=== PATIENT | female | born 1965 | race African-American/Black ===

== ENCOUNTER 2016-06-09 22:13 | Emergency (ER) | payer SELFPAY ==
[2016-06-10] MEDS ORDERED: TETRACAINE HCL 0.5% OPH SOLN 2 ML OS ONE (02:18)
--- NOTE | 2016-06-10 02:20 | ER Document Report ---
ED General - General Chief Complaint: L side facial swelling Stated Complaint: LEFT SIDE FACE PAIN/SWELLING Time seen by provider: 02:10 Notes: Patient is a 51-year-old female that comes emergency department for chief complaint of pain in the left religion area with radiations to her jaw, she also complains of eye pain and light sensitivity to the left eye. She states that she started feeling like her face was swollen. She denies numbness, weakness, visual loss, injury. She denies fever or chills. Headache initially started almost 3 days ago but symptoms have worsened. Past medical history of hypertension and diabetes, currently out of all her medications because she does not have a primary care physician. TRAVEL OUTSIDE OF THE [place] IN LAST 30 DAYS: No - Related Data Allergies/Adverse Reactions: levofloxacin [From Levaquin] Allergy (Verified 01/06/14 21:27) nitrofurantoin [From Macrobid] Allergy (Verified 01/06/14 21:27) Past Medical History - General Information source: Patient - Social History Smoking Status: Never Smoker Frequency of alcohol use: None Drug Abuse: None Lives with: Family Family History: Hypertension Patient has suicidal ideation: No Patient has homicidal ideation: No - Past Medical History Cardiac Medical History: Reports: Hx Hypertension Endocrine Medical History: Reports: Hx Diabetes Mellitus Type 2 Renal/ Medical History: Denies: Hx Peritoneal Dialysis Psychiatric Medical History: Reports: Hx Depression Past Surgical History: Reports: Hx Cholecystectomy, Hx Tubal Ligation - Immunizations Hx Diphtheria, Pertussis, Tetanus Vaccination: No Hx Pneumococcal Vaccination: 05/18/00 Review of Systems - Review of Systems Constitutional: No symptoms reported EENT: See HPI Cardiovascular: No symptoms reported Respiratory: No symptoms reported Gastrointestinal: No symptoms reported Genitourinary: No symptoms reported Female Genitourinary: No symptoms reported Musculoskeletal: No symptoms reported Skin: No symptoms reported Hematologic/Lymphatic: No symptoms reported Neurological/Psychological: See HPI Physical Exam - Vital signs Vitals: Temp Pulse BP Pulse Ox 98.5 F 107 H 199/97 H 98 06/09/16 22:26 06/09/16 22:26 06/09/16 22:26 06/09/16 22:26 Interpretation: Normal - General General appearance: Appears well, Alert In distress: None - HEENT Head: Normocephalic, Atraumatic Eyes: Normal. No: Periorbital ecchymosis, Periorbital edema Conjunctiva: Injected - Erythematous irritated appearing left eye. No: Purulent discharge Cornea: No: Corneal abrasion, Corneal ulcer, Dendrite, Embedded foreign body, Flourescein stain uptake, Opacified, Superficial foreign body Extraocular movements intact: Yes Eyelashes: Normal Pupils: PERRL - Patient with some photophobia of the left eye Corrective lenses worn: Yes - glasses Right intraocular pressure: average of 15 Left intraocular pressure: average of 18 Anterior chamber: Normal Nerve palsy: No Ears: Normal External canal: Normal Tympanic membrane: Normal Sinus: Normal Nasal: Normal Mouth/Lips: Normal Mucous membranes: Normal Pharynx: Normal Neck: Normal - Respiratory Respiratory status: No respiratory distress Chest status: Nontender Breath sounds: Normal Chest palpation: Normal - Cardiovascular Rhythm: Regular Heart sounds: Normal auscultation Murmur: No - Abdominal Inspection: Normal Distension: No distension Bowel sounds: Normal Tenderness: Nontender Organomegaly: No organomegaly - Back Back: Normal, Nontender - Extremities General upper extremity: Normal inspection, Nontender, Normal color, Normal ROM , Normal temperature General lower extremity: Normal inspection, Nontender, Normal color, Normal ROM , Normal temperature, Normal weight bearing. No: Hugh's sign - Neurological Neuro grossly intact: Yes Cognition: Normal Orientation: AAOx4 [place] Coma Scale Eye Opening: Spontaneous [place] Coma Scale Verbal: Oriented [place] Coma Scale Motor: Obeys Commands [place] Coma Scale Total: 15 Speech: Normal Motor strength normal: LUE, RUE, LLE, RLE Sensory: Normal - Psychological Associated symptoms: Normal affect, Normal mood - Skin Skin Temperature: Warm Skin Moisture: Dry Skin Color: Normal Course - Re-evaluation Re-evalutation: Fluoresceined eye examination with the Hunter lamp and slit-lamp is unremarkable with no dendrites or other abnormalities noted. Patient denies very injected, initially with photophobia and location was given tetracaine. Patient does have tenderness noted over the left side of the face in the temporal area, however ESR is unremarkable. Patient with no facial drooping or neurological deficits on examination, no visual changes reported, only symptoms of pain and evidence of irritation. Concern for possible early shingles, intraocular pressure is unremarkable, no injuries reported. Patient with hypoglycemia, patient states that she has done best with the 1 mg so far area in addition to 1000 g metformin twice a day, also needs to be restarted on her blood pressure medication. Patient was given these, referred to local primary care, she states that she will follow with both this and with ophthalmology in the morning. Starting on Valtrex, discussed return precautions. Patient was evaluated at bedside by Dr. Pedroza. Patient states understanding and agreement. - Vital Signs Vital signs: Temp Pulse Resp BP Pulse Ox 98.2 F 88 16 189/89 H 99 06/10/16 04:56 06/10/16 04:56 06/10/16 04:56 06/10/16 04:56 06/10/16 04:56 - Laboratory Result Diagrams: 06/10/16 03:02 Laboratory results interpreted by me: 06/10/16 06/10/16 03:02 03:02 ESR 32 H Glucose 320 H Discharge - Discharge Clinical Impression: Left eye pain Condition: Stable Disposition: HOME, SELF-CARE Additional Instructions: Your laboratory workup and pressures do not show an acute abnormalities. We are covering you with an antiviral for potential shingles, please take the Valtrex as directed, take Percocet if needed for pain, please call ophthalmology referral placed today for a close follow-up. Follow-up with primary care for additional management of your diabetes and blood pressure, see referral. Please return to the emergency department for any concerning or worsening symptoms including loss of vision, swelling of the eye, severe headache, etc. Prescriptions: Glimepiride [Amaryl 1 mg Tablet] 1 mg PO QAM #30 tablet Lisinopril 10 mg PO DAILY #60 tablet Metformin HCl [Glucophage] 1,000 mg PO BID #60 tablet Oxycodone HCl/Acetaminophen [Percocet 5-325 mg Tablet] 1 - 2 tab PO Q4H PRN #15 tablet PRN Reason: Valacyclovir HCl [Valtrex 500 Mg Tablet] 1,000 mg PO TID #21 tablet Referrals: DIGNA CARMONA MD [ACTIVE STAFF] - 06/10/16 [facility] [Provider Group] - Follow up in 1 week
[2016-06-10 03:34] LABS: ANION GAP 8 (5-19); BLOOD UREA NITROGEN 15 mg/dL (7-20); CALCIUM 9.8 mg/dL (8.4-10.2); CARBON DIOXIDE 28 mmol/L (22-30); CHLORIDE 104 mmol/L (98-107); CREATININE RESULT 0.63 mg/dL (0.52-1.25); GLUCOSE 320 mg/dL (75-110); POTASSIUM 4.4 mmol/L (3.6-5.0); SODIUM 140.2 mmol/L (137-145)
[2016-06-10] MEDS ORDERED: OXYCODONE-ACETAMINOPHEN 5-325 MG TABLET PO ONE (03:55)
[2016-06-10] MEDS ORDERED: ONDANSETRON 4 MG TAB.RAPDIS PO ONE (03:55)
[2016-06-10] MEDS ORDERED: VALACYCLOVIR HCL 500 MG TABLET PO ONE (04:38)
[2016-06-10 05:01] VITALS: BP 189/89
== END 2016-06-10 05:01 | disposition home or self-care (01) ==
LOC: ER 22:13
DX: H57.12 Ocular pain, left eye (principal); H53.149 Visual discomfort, unspecified; I10 Essential (primary) hypertension; E11.9 Type 2 diabetes mellitus without complications; Z90.49 Acquired absence of other specified parts of digestive tract; Z98.51 Tubal ligation status
CPT/HCPCS: 99283; 36415; 85652; 80048; S0119

== ENCOUNTER 2016-12-18 02:02 | Observation (INO) | payer SELFPAY ==
--- NOTE | 2016-12-18 02:13 | ER Document Report ---
ED General - General Chief Complaint: Chest Pain Stated Complaint: CHEST PAIN Time Seen by Provider: 12/18/16 02:08 Notes: 31-year-old female with hypertension hypercholesterolemia and diabetes untreated for 5 months secondary to financial issues presents with sudden onset central chest pain radiating to the left shoulder blade down the left arm associated with sweating nausea and shortness of breath. This started about an hour ago. She has no numbness or tingling the pain is not described as ripping or tearing rather pressure-like. She was given aspirin nitroglycerin by ambulance, the nitroglycerin brought her pain from an 12/17/2000. Not exertional non-positional. No history of same. After the symptoms she had one episode of diarrhea. She currently does not have chest pain. TRAVEL OUTSIDE OF THE [place] IN LAST 30 DAYS: No - Related Data Allergies/Adverse Reactions: levofloxacin [From Levaquin] Allergy (Verified 01/06/14 21:27) nitrofurantoin [From Macrobid] Allergy (Verified 01/06/14 21:27) Past Medical History - General Information source: Patient - Social History Smoking Status: Current Every Day Smoker Cigarette use (# per day): Yes - "Black and mild" Smoking Education Provided: Yes - The patient ED visit today was directly related to their abuse of tobacco. Family History: Hypertension - Past Medical History Cardiac Medical History: Reports: Hx Hypertension Endocrine Medical History: Reports: Hx Diabetes Mellitus Type 2 Renal/ Medical History: Denies: Hx Peritoneal Dialysis Psychiatric Medical History: Reports: Hx Depression Past Surgical History: Reports: Hx Cholecystectomy, Hx Tubal Ligation - Immunizations Hx Diphtheria, Pertussis, Tetanus Vaccination: No Hx Pneumococcal Vaccination: 05/18/00 Review of Systems - Review of Systems Notes: REVIEW OF SYSTEMS GEN: Denies fever, chills, weight loss pheresis ENT: Denies sore throat, nasal discharge, ear pain EYES: Denies blurry vision, eye pain, discharge CV: D chest pain and radiation RESP: Denies cough, shortness of breath, wheezing GI: She had diarrhea MSK: Denies joint pain/swelling, edema, SKIN: Denies rash, skin lesions LYMPH: Denies swollen glands/lymph nodes NEURO: Denies headache, focal weakness or numbness, dizziness PSYCH: Denies depression, suicidal or homicidal ideation PHYSICAL EXAMINATION General: No acute distress, well-nourished Head: Atraumatic, normocephalic ENT: Mouth normal, oropharynx moist, no exudates or tonsillar enlargement Eyes: Conjunctiva normal, pupils equal, lids normal Neck: No JVD, supple, no guarding CVS: Normal rate, regular rhythm, no murmurs Resp: No resp distress, equal and normal breath sounds bilaterally GI: Nondistended, soft, no tenderness to palpation, no rebound or guarding Ext: No deformities, no edema, normal range of motion in upper and lower ext Back: No CVA or midline TTP Skin: No rash, warm Lymphatic: No lymphadeopathy noted Neuro: Awake, alert. Face symmetric. GCS 15. Physical Exam - Vital signs Vitals: Temp Pulse Resp BP Pulse Ox 98 F 104 H 18 108/76 98 12/18/16 02:18 12/18/16 02:18 12/18/16 02:18 12/18/16 02:18 12/18/16 02:18 Course - Re-evaluation Re-evalutation: 12/18/16 02:12 51-year-old lady with untreated hypertension presents with acute hypertension and chest pain radiating to the back and left arm. Differential concerns include aortic dissection unstable angina versus other myocardial infarction. STEMI was ruled out by paramedics and is ruled out based on her initial EKG which is unchanged from prior and shows only L the age. I will aggressively treat her pain hypertension with nitroglycerin, withhold further anticoagulation , and rule out dissection with a CTA of the chest abdomen and pelvis. Do not believe this pulmonary embolus. Troponins are being sent. 12/18/16 02:59 HEART SCORE: 5 points Moderate Score (4-6 points) Risk of MACE of 12-16.6%. 12/18/16 03:31 Patient CTA is negative. She is pain-free with nitroglycerin. Her given her heart score and the severity of her presentation and uncontrolled chronic, she will be admitted to the hospital. Patient is accepted by Dr. Kurtz. - Vital Signs Vital signs: Temp Pulse Resp BP Pulse Ox 98 F 104 H 18 108/76 98 12/18/16 02:18 12/18/16 02:18 12/18/16 02:18 12/18/16 02:18 12/18/16 02:18 - Laboratory Result Diagrams: 12/18/16 02:08 12/18/16 02:08 Laboratory results interpreted by me: 12/18/16 02:08 Glucose 364 H Direct Bilirubin 0.5 H AST 75 H Alkaline Phosphatase 159 H - Diagnostic Test Radiology reviewed: Image reviewed, Reports reviewed - EKG Interpretation by Me Rate: Normal When compared to previous EKG there are: No significant change Additional EKG results interpreted by me: 12/18/16 02:12 Inversion in lead I and aVL likely secondary repolarization from LVH unchanged Discharge - Discharge Clinical Impression: Chest pain Qualifiers: Chest pain type: unspecified Qualified Code(s): R07.9 - Chest pain, unspecified Condition: Good Disposition: ADMITTED OBSERVATION Admitting Provider: Hospitalist Unit Admitted: Telemetry
[2016-12-18 02:22] LABS: ABSOLUTE BASOPHILS # (AUTO) 0.1 10^3/uL (0.0-0.2); ABSOLUTE EOSINOPHILS # (AUTO) 0.1 10^3/uL (0.0-0.6); ABSOLUTE LYMPHOCYTES (AUTO) 2.2 10^3/uL (0.5-4.7); ABSOLUTE MONOCYTES (AUTO) 0.5 10^3/uL (0.1-1.4); ABSOLUTE NEUT (AUTO) 3.4 10^3/uL (1.7-8.2); EOSINOPHILS % (AUTO) 1.3 % (0-6); HEMATOCRIT 38.9 % (36.0-47.0); HEMOGLOBIN 13.3 g/dL (12.0-15.5); LYMPHOCYTES % (AUTO) 35.4 % (13-45); MEAN CORPUSCULAR HEMOGLOBIN 29.4 pg (27.0-33.4); MEAN CORPUSCULAR HGB CONC 34.2 g/dL (32.0-36.0); MEAN CORPUSCULAR VOLUME 86 fl (80-97); MONOCYTES % (AUTO) 8.3 % (3-13); RED BLOOD COUNT 4.52 10^6/uL (3.72-5.28); RED CELL DISTRIBUTION WIDTH 13.1 % (11.5-14.0); WHITE BLOOD COUNT 6.2 10^3/uL (4.0-10.5)
--- NOTE | 2016-12-18 02:26 | RADIOLOGY REPORT (SQ) ---
EXAM DESCRIPTION: CHEST SINGLE VIEW COMPLETED DATE/TIME: 12/18/2016 2:17 am REASON FOR STUDY: CP COMPARISON: 02/10/2016. EXAM PARAMETERS: NUMBER OF VIEWS: One view. TECHNIQUE: Single frontal radiographic view of the chest acquired. RADIATION DOSE: NA LIMITATIONS: None. FINDINGS: LUNGS AND PLEURA: No opacities, masses or pneumothorax. No pleural effusion. MEDIASTINUM AND HILAR STRUCTURES: No masses. Contour normal. HEART AND VASCULAR STRUCTURES: Heart normal in size. Normal vasculature. BONES: No acute findings. HARDWARE: None in the chest. OTHER: No other significant finding. IMPRESSION: NO ACUTE RADIOGRAPHIC FINDING IN THE CHEST. TECHNICAL DOCUMENTATION: JOB ID: [id number]
[2016-12-18 02:40] LABS: ALANINE AMINOTRANSFERASE 39 U/L (9-52); ALBUMIN 3.9 g/dL (3.5-5.0); ALKALINE PHOSPHATASE 159 U/L (38-126); ANION GAP 10 (5-19); ASPARTATE AMINO TRANSFERASE 75 U/L (14-36); BILIRUBIN,DIRECT 0.5 mg/dL (0.0-0.4); BILIRUBIN,TOTAL 0.9 mg/dL (0.2-1.3); BLOOD UREA NITROGEN 12 mg/dL (7-20); CALCIUM 9.5 mg/dL (8.4-10.2); CARBON DIOXIDE 26 mmol/L (22-30); CHLORIDE 105 mmol/L (98-107); GLUCOSE 364 mg/dL (75-110); POTASSIUM 4.3 mmol/L (3.6-5.0); SODIUM 140.6 mmol/L (137-145); TOTAL PROTEIN 6.7 g/dL (6.3-8.2)
[2016-12-18] MEDS ORDERED: FLUCONAZOLE 100 MG TABLET PO ONE (03:08)
--- NOTE | 2016-12-18 03:25 | RADIOLOGY REPORT (SQ) ---
EXAM DESCRIPTION: CTA CHEST COMPLETED DATE/TIME: 12/18/2016 3:10 am REASON FOR STUDY: HTN, chest pain radiating to back COMPARISON: CT, renal system, 08/16/2011. TECHNIQUE: CT scan of the chest performed using helical scanning technique with dynamic intravenous contrast injection. Images reviewed with lung, soft tissue and bone windows. Reconstructed coronal and sagittal MPR images reviewed. Additional 3 dimensional post-processing performed to develop Maximal Intensity Projection images (MO P). All images stored on PACS. All CT scanners at this facility use dose modulation, iterative reconstruction, and/or weight based d osing when appropriate to reduce radiation dose to as low as reasonably achievable (ALARA). [facility]: Dose Right [facility]: CareDose [facility]: Dose Right [facility]: Teradose 4D [facility]: [employer] CONTRAST TYPE AND DOSE: contrast/concentration: Isovue 370.00 mg/ml; Total Contrast Delivered: 100.0 ml; Total Saline Delivered: 60.0 ml RENAL FUNCTION: Creatinine 0.7 RADIATION DOSE: 1,205 LIMITATIONS: None. FINDINGS: LUNGS AND PLEURA: 1.1 by 0.8 cm well-defined round solid pulmonary nodule of the right co stophrenic angle, image 75 of series 3, without suspicious interval change directly compared with mario or CT, 08/16/2011. AORTA AND GREAT VESSELS: No aneurysm or dissection. HEART: No pericardial effusion. PULMONARY ARTERIES: No emboli visualized in the main pulmonary arteries or the segmental branches. HILAR AND MEDIASTINAL STRUCTURES: No identified masses or abnormal nodes. HARDWARE: None in the chest. UPPER ABDOMEN: See separate report of the CT of the abdomen. THYROID AND OTHER SOFT TISSUES: No masses. No adenopathy. BONES: No acute or significant finding. 3D MIPS: Confirm above findings. OTHER: No other significant finding. IMPRESSION: No acute cardiopulmonary findings. Intact CTA appearance of the aorta. NO PULMONARY EM BOLI. TECHNICAL DOCUMENTATION: JOB ID: [id number] Quality ID # [id number]: Final reports with documentation of one or more dose reduction techniques (e.g., Au tomated exposure control, adjustment of the mA and/or kV according to patient size, use of iterative reconstruction technique) 2010 [employer]- All Rights Reserved
[2016-12-18 03:32] LABS: APPEARANCE,URINE CLEAR; BILIRUBIN,URINE NEGATIVE (NEGATIVE); GLUCOSE, URINE >=500 mg/dL (NEGATIVE); KETONES,URINE NEGATIVE (NEGATIVE); LEUKOCYTE ESTERASE,URINE NEGATIVE (NEGATIVE); NITRITE,URINE NEGATIVE (NEGATIVE); PROTEIN,URINE NEGATIVE (NEGATIVE); URINE SPECIFIC GRAVITY 1.039
[2016-12-18] MEDS ORDERED: GLUCAGON,HUMAN RECOMB 1 MG INJ IM PRN (03:34)
[2016-12-18] MEDS ORDERED: DEXTROSE 40% GEL 15 GM TUBE PO PRN ×2 (03:34)
[2016-12-18] MEDS ORDERED: NITROGLYCERIN 0.4 MG/TAB 25 TAB/BOTTLE SL PRN (03:34)
[2016-12-18] MEDS ORDERED: DEXTROSE 50%-WATER 25 GM/50 ML DISP.SYRIN IV PRN ×2 (03:34)
[2016-12-18] MEDS ORDERED: ACETAMINOPHEN 325 MG TABLET PO PRN ×2 (03:37→10:31)
--- NOTE | 2016-12-18 03:37 | RADIOLOGY REPORT (SQ) ---
EXAM DESCRIPTION: CTA PELVIS; CTA ABDOMEN COMPLETED DATE/TIME: 12/18/2016 3:10 am REASON FOR STUDY: HTN, chest pain radiating to back COMPARISON: None. TECHNIQUE: CT scan of the abdominal aorta extending to the iliac bifurcation performed with and with out intravenous contrast using helical scanning technique with dynamic intravenous contrast injection . Images reviewed with lung, soft tissue, and bone windows. Reconstructed coronal and sagittal MPR im ages reviewed. All images stored on PACS. Advanced 3D imaging as volume rendering, MIPS, SSD performed? yes All CT scanners at this facility use dose modulation, iterative reconstruction, and/or weight based d osing when appropriate to reduce radiation dose to as low as reasonably achievable (ALARA). [facility]: Dose Right [facility]: CareDose [facility]: Dose Right [facility]: Teradose 4D [facility]: [employer] CONTRAST TYPE AND DOSE: 100 mLs Isovue 370 RENAL FUNCTION: Creatinine 0.7 LIMITATIONS: None. FINDINGS: NON-CONTRASTED IMAGING: No significant renal or bladder calcifications. No other significa nt organ calcifications. POST-CONTRAST IMAGING: AORTA AND VESSELS: No aneurysm. No dissection. Renal arteries, SMA, celiac without stenosis. Atheros clerosis. LUNG BASES: CT of the chest reported separately. LIVER: Normal size. No masses or dilated ducts. SPLEEN: Normal size. No focal lesions. PANCREAS: No masses. No significant calcifications. No adjacent inflammation or peripancreatic fluid collections. Pancreatic duct not dilated. GALLBLADDER: Surgically absent. ADRENAL GLANDS: No significant masses or asymmetry. RIGHT KIDNEY AND URETER: No mass, calculi or urinary tract obstruction. LEFT KIDNEY AND URETER: No mass, calculi or urinary tract obstruction. RETROPERITONEUM: No retroperitoneal adenopathy, hemorrhage or masses. BOWEL AND PERITONEAL CAVITY: No masses or inflammatory changes. No free fluid or peritoneal masses. APPENDIX: Normal. Pelvis: Unremarkable. ABDOMINAL WALL: No masses. No hernias. BONY STRUCTURES: No significant or acute findings. 3-D IMAGING: Confirms the above findings. OTHER: No other significant finding. IMPRESSION: NO ABDOMINAL AORTIC ANEURYSM, DISSECTION OR SIGNIFICANT STENOSIS. NO SIGNIFICANT FINDING S IN THE ABDOMEN/pelvis. TECHNICAL DOCUMENTATION: JOB ID: [id number] Quality ID # [id number]: Final reports with documentation of one or more dose reduction techniques (e.g., Au tomated exposure control, adjustment of the mA and/or kV according to patient size, use of iterative reconstruction technique) 2010 [employer]- All Rights Reserved
[2016-12-18] MEDS ORDERED: NITROGLYCERIN 2% OINTMENT 1 GM PACKET TP ONE (03:40)
[2016-12-18] MEDS ORDERED: ATORVASTATIN CALCIUM 80 MG TABLET PO SCH (03:45)
[2016-12-18] MEDS ORDERED: ENALAPRIL MALEATE 5 MG TABLET PO SCH ×2 (03:45→18:00)
[2016-12-18 04:14] LABS: URINE BARBITURATES SCREEN NEGATIVE; URINE METHADONE SCREEN NEGATIVE; URINE OPIATES LOW NEGATIVE; URINE PHENCYCLIDINE SCREEN NEGATIVE
--- NOTE | 2016-12-18 04:20 | PDOC H&P ---
History of Present Illness Patient complains of: Chest pain History of Present Illness: DAYSI CATALAN is a 51 year old female with a past medical history of diabetes, dyslipidemia and hypertension who is been out of all medications for approximately 4 months and has been in her usual state of health until sudden onset of left-sided 5 out of 5 chest pain which radiated to the left arm and neck associated with palpitations, nausea and diaphoresis. She denies previous episode, pain is exacerbated by activity and reduced by nitroglycerin administered by EMS. EMS reports a blood pressure of 196/109 pulse of 90 and regular. In the emergency room she has an unremarkable workup and is referred to the hospitalist for admission. Patient states at least a month of heat intolerance, insomnia and anxiety. Past Medical History Cardiac Medical History: Reports: Hyperlipidema, Hypertension Endocrine Medical History: Reports: Diabetes Mellitus Type 2 Psychiatric Medical History: Reports: Depression Past Surgical History Past Surgical History: Reports: Cholecystectomy, Tubal Ligation Social History Information Source: Patient Lives with: Family Smoking Status: Current Every Day Smoker Cigars Per Day: 1 Frequency of Alcohol Use: None Hx Recreational Drug Use: No Hx Prescription Drug Abuse: Yes - Advance Directive Resuscitation Status: Full Code Family History Family History: CAD, COPD, Hypertension, Malignancy - Father of lung cancer Parental Family History Reviewed: Yes Children Family History Reviewed: Yes Sibling(s) Family History Reviewed.: Yes Medication/Allergy Home Medications: Metformin HCl [Glucophage 500 mg Tablet] 500 mg PO BID 08/16/11 Benazepril HCl [Lotensin] 50 mg PO DAILY 01/07/14 Hydrochlorothiazide [Hydrodiuril 12.5 mg Capsule] 12.5 mg PO QAM #0 capsule Tramadol HCl [Ultram 50 mg Tablet] 50 mg PO Q8HP PRN #0 tablet 01/07/14 Hydrochlorothiazide 25 mg PO DAILY #30 tablet 10/07/14 Metformin HCl [Glucophage 500 mg Tablet] 500 mg PO BID #30 tablet 10/07/14 Methocarbamol [Robaxin] 500 mg PO BID PRN #14 tablet 10/07/14 Aspirin [Aspirin 81 mg Chewable Tablet] 81 mg PO DAILY tab.chew 04/23/15 Glimepiride [Amaryl 1 mg Tablet] 1 mg PO QAM #30 tablet 04/23/15 Hydrochlorothiazide [Hydrodiuril 12.5 mg Capsule] 12.5 mg PO QAM #30 capsule 11/29 Lisinopril [Prinivil 10 mg Tablet] 10 mg PO DAILY #30 tablet 04/23/15 Metformin HCl [Glucophage 500 mg Tablet] 500 mg PO BID #60 tablet 04/23/15 Neomy Sulf/Polymyx B Sulf/Hc [Cortisporin Otic Susp 10 ml] 4 drop AD QID #1 bottle 04/23/15 Oxycodone HCl/Acetaminophen [Percocet 5-325 mg Tablet] 1 tab PO Q6HP PRN #20 Hydrocodone/Acetaminophen [[place] 5-325 mg Tablet] 1 tab PO Q6 #10 tablet Hydrochlorothiazide 12.5 mg PO DAILY #30 capsule 01/09/16 Lisinopril [Prinivil 10 mg Tablet] 10 mg PO DAILY #30 tablet 01/09/16 Azithromycin [Zithromax 250 mg Tablet] 250 mg PO ASDIR PRN #6 tablet 02/10/16 Hydrocodone/Acetaminophen [[place] 5-325 mg Tablet] 1 - 2 tab PO ASDIR #15 tablet 02/10/16 Prednisone [Deltasone 10 mg Tablet] 10 mg PO ASDIR PRN #21 tablet 02/10/16 Glimepiride [Amaryl 1 mg Tablet] 1 mg PO QAM #30 tablet 06/10/16 Lisinopril 10 mg PO DAILY #60 tablet 06/10/16 Metformin HCl [Glucophage] 1,000 mg PO BID #60 tablet 06/10/16 Oxycodone HCl/Acetaminophen [Percocet 5-325 mg Tablet] 1 - 2 tab PO Q4H PRN #15 tablet 06/10/16 Valacyclovir HCl [Valtrex 500 Mg Tablet] 1,000 mg PO TID #21 tablet 06/10/16 Allergies/Adverse Reactions: levofloxacin [From Levaquin] Allergy (Verified 01/06/14 21:27) nitrofurantoin [From Macrobid] Allergy (Verified 01/06/14 21:27) Review of Systems Constitutional: PRESENT: weight loss - Unintended. ABSENT: chills, fever(s), headache(s), weight gain Eyes: ABSENT: visual disturbances Ears: ABSENT: hearing changes Cardiovascular: ABSENT: chest pain, dyspnea on exertion, edema, orthropnea, palpitations Respiratory: ABSENT: cough, hemoptysis Gastrointestinal: ABSENT: abdominal pain, constipation, diarrhea, hematemesis, hematochezia, nausea, vomiting Genitourinary: ABSENT: dysuria, hematuria Musculoskeletal: ABSENT: joint swelling Integumentary: ABSENT: rash, wounds Neurological: ABSENT: abnormal gait, abnormal speech, confusion, dizziness, focal weakness, syncope Psychiatric: PRESENT: anxiety Endocrine: PRESENT: heat intolerance. ABSENT: polydipsia, polyuria Hematologic/Lymphatic: ABSENT: easy bleeding, easy bruising Physical Exam Vital Signs: Temp Pulse Resp BP Pulse Ox 98 F 104 H 23 H 168/97 H 100 12/18/16 02:18 12/18/16 02:18 12/18/16 04:01 12/18/16 04:01 12/18/16 04:01 General appearance: PRESENT: no acute distress, well-developed, well-nourished Head exam: PRESENT: atraumatic, normocephalic Eye exam: PRESENT: conjunctiva pink, EOMI, PERRLA. ABSENT: scleral icterus Ear exam: PRESENT: normal external ear exam Mouth exam: PRESENT: moist, tongue midline Neck exam: PRESENT: thyromegaly - Right-sided nodule Respiratory exam: PRESENT: clear to auscultation lucy. ABSENT: rales, rhonchi, wheezes Cardiovascular exam: PRESENT: RRR. ABSENT: diastolic murmur, rubs, systolic murmur Pulses: PRESENT: normal dorsalis pedis pul Vascular exam: PRESENT: normal capillary refill GI/Abdominal exam: PRESENT: normal bowel sounds, soft. ABSENT: distended, guarding, mass, organolmegaly, rebound, tenderness Rectal exam: PRESENT: deferred Extremities exam: PRESENT: full ROM. ABSENT: calf tenderness, clubbing, pedal edema Neurological exam: PRESENT: alert, awake, oriented to person, oriented to place , oriented to time, oriented to situation, CN II-XII grossly intact. ABSENT: motor sensory deficit Psychiatric exam: PRESENT: appropriate affect, normal mood. ABSENT: homicidal ideation, suicidal ideation Skin exam: PRESENT: dry, intact, warm. ABSENT: cyanosis, rash Results Laboratory Results: 12/18/16 02:08 12/18/16 02:08 12/18/16 12/18/16 12/18/16 02:08 02:08 03:07 WBC 6.2 RBC 4.52 Hgb 13.3 Hct 38.9 MCV 86 MCH 29.4 MCHC 34.2 RDW 13.1 Plt Count 224 Seg Neutrophils % 54.0 Lymphocytes % 35.4 Monocytes % 8.3 Eosinophils % 1.3 Basophils % 1.0 Absolute Neutrophils 3.4 Absolute Lymphocytes 2.2 Absolute Monocytes 0.5 Absolute Eosinophils 0.1 Absolute Basophils 0.1 Sodium 140.6 Potassium 4.3 Chloride 105 Carbon Dioxide 26 Anion Gap 10 BUN 12 Creatinine 0.70 Est GFR ( Amer) > 60 Est GFR (Non-Af Amer) > 60 Glucose 364 H Calcium 9.5 Total Bilirubin 0.9 AST 75 H ALT 39 Alkaline Phosphatase 159 H Total Protein 6.7 Albumin 3.9 Urine Color YELLOW Urine Appearance CLEAR Urine pH 7.0 Ur Specific [place] 1.039 Urine Protein NEGATIVE Urine Glucose (UA) >=500 H Urine Ketones NEGATIVE Urine Blood NEGATIVE Urine Nitrite NEGATIVE Ur Leukocyte Esterase NEGATIVE Urine WBC (Auto) 0 Urine RBC (Auto) 0 12/18/16 02:08 Troponin I < 0.012 Impressions: Chest X-Ray 12/18/16 02:05 IMPRESSION: NO ACUTE RADIOGRAPHIC FINDING IN THE CHEST. Chest/Abdomen CTA 12/18/16 02:08 IMPRESSION: NO ABDOMINAL AORTIC ANEURYSM, DISSECTION OR SIGNIFICANT STENOSIS. NO SIGNIFICANT FINDINGS IN THE ABDOMEN/pelvis. Pelvis CTA 12/18/16 02:08 IMPRESSION: NO ABDOMINAL AORTIC ANEURYSM, DISSECTION OR SIGNIFICANT STENOSIS. NO SIGNIFICANT FINDINGS IN THE ABDOMEN/pelvis. Assessment & Plan - Diagnosis (1) Hypertensive urgency Is this a current diagnosis for this admission?: YesPlan: Hypertensive urgency precipitating cardiac chest pain with blood pressure 196/ 109 she can receive TRACE inhibitor, nitrates and consideration of diuretic. Education with follow-up at the clinic to prevent running out of meds (2) Chest pain Qualifiers: Chest pain type: unspecified Qualified Code(s): R07.9 - Chest pain, unspecified Is this a current diagnosis for this admission?: YesPlan: Chest pain care set Cardiolite stress given elevated risk, ordered symptomatic management follow-up troponin. (3) Hyperthyroidism Is this a current diagnosis for this admission?: YesPlan: Right-sided thyroid nodule hypertensive urgency, heat intolerance, weight loss and anxiety will evaluate a TSH and ultrasound (4) Anxiety Is this a current diagnosis for this admission?: YesPlan: Will initiate Celexa trial (5) Diabetes Qualifiers: Diabetes mellitus type: type 1 Diabetes mellitus complication status: with hyperglycemia Qualified Code(s): E10.65 - Type 1 diabetes mellitus with hyperglycemia Is this a current diagnosis for this admission?: YesPlan: Sliding scale coverage, evaluate A1c and consideration of long-acting insulin. Education - Time Time Spent: 50 to 70 Minutes - Inpatient Certification Medical Necessity: Need Close Monitoring Due to Risk of Patient Decompensation
[2016-12-18] MEDS ORDERED: ENALAPRIL MALEATE 5 MG TABLET PO ONE (05:00)
[2016-12-18] MEDS ORDERED: ATORVASTATIN CALCIUM 80 MG TABLET PO ONE (05:00)
[2016-12-18] MEDS: INSULIN LISPRO 100 UNIT/ML 3 ML VIAL SUBCUT PRN ×3 (06:14→15:54)
[2016-12-18] MEDS: HEPARIN SOD (PORCINE) 5,000 UNIT/ML 1 ML SYRINGE SUBCUT SCH ×2 (06:15→13:48)
[2016-12-18 06:31] LABS: CHOLESTEROL 238.05 mg/dL (0-200); Direct HDL 35 mg/dL (>40); TRIGLYCERIDES 274 mg/dL (<150)
[2016-12-18 06:41] LABS: DIRECT LDL 125 mg/dL (<100)
[2016-12-18 06:45] LABS: VLDL CHOLESTEROL 54.8 mg/dL (10-31)
[2016-12-18 06:48] LABS: CREATINE KINASE MB < 0.22 ng/mL (<4.55); TROPONIN I < 0.012 ng/mL
[2016-12-18] MEDS ORDERED: AMLODIPINE BESYLATE 5 MG TABLET PO ONE (07:00)
--- NOTE | 2016-12-18 08:13 | EKG REPORT ---
SEVERITY:- ABNORMAL ECG - SINUS TACHYCARDIA LVH WITH SECONDARY REPOLARIZATION ABNORMALITY : Confirmed by: Candelario Escamilla MD 18-Dec-2016 08:11:38
--- NOTE | 2016-12-18 09:21 | RADIOLOGY REPORT (SQ) ---
EXAM DESCRIPTION: U/S THYROID/SFT TISS HD NECK COMPLETED DATE/TIME: 12/18/2016 7:09 am REASON FOR STUDY: R thyroid nodule COMPARISON: None. TECHNIQUE: Dynamic and static lance-scale images acquired of the thyroid gland. Selected additional c olor/power Doppler images recorded. All images stored to PACS. LIMITATIONS: None. FINDINGS: RIGHT LOBE: Normal size, 4.3 x 1.9 x 1.2 cm in size. Homogeneous echotexture. No right l obe thyroid cysts. Along the posterior aspect of the lower pole right lobe thyroid gland, there is a nodule measuring 1.3 x 1 x 0.7 cm in size. Echotexture of this nodule is similar compared to the re mainder of the thyroid gland, this correlates with the CT exam chest 12/18/2016 demonstrating a small a ccessory lobe in the posterior aspect right lobe thyroid. LEFT LOBE: Normal size, 4.6 x 1.9 x 1.4 cm in size. Homogeneous echotexture. 3.5 x 3 mm nodule in t he left midpole thyroid with up coarse dense appearing calcification, likely benign. ISTHMUS: Normal size. Homogeneous echotexture. No cystic or solid masses. OTHER: No other significant finding. IMPRESSION: Probable anatomic variant along the dorsal aspect right lower pole thyroid gland, with a n accessory lobule. This has the same echotexture as the remainder the thyroid gland and correlates with CT findings from today, CT angio chest. Probably benign less than 5 mm nodule in left midpole thyroid gland Repeat ultrasound of the thyroid gland in 6 months is recommended to evaluate for any suspicious eller [employer] TECHNICAL DOCUMENTATION: JOB ID: [id number] [employer]- All Rights Reserved
[2016-12-18] MEDS ORDERED: DOCUSATE SODIUM 100 MG CAPSULE PO SCH (10:00)
[2016-12-18] MEDS ORDERED: LOSARTAN POTASSIUM 50 MG TABLET PO ONE (10:00)
[2016-12-18] MEDS ORDERED: DULOXETINE HCL 20 MG CAPSULE.DR PO SCH (10:00)
[2016-12-18] MEDS ORDERED: REGADENOSON INJ 0.4 MG/5 ML DISP.SYRIN IV ONE (11:31)
[2016-12-18] MEDS ORDERED: AMINOPHYLLINE INJ/PF 250 MG/10 ML SDV IV ONE (11:31)
--- NOTE | 2016-12-18 12:19 | DRAGON STRESS TEST REPORT ---
INTRAVENOUS LEXISCAN CARDIOLITE STRESS TEST USING SINGLE PHOTON EMMISION COMPUTERIZED TOMOGRAPHIC. DATE OF PROCEDURE: December 18, 2016 INDICATION : Chest pain CARDIAC RISK FACTORS: Diabetes, hypertension, dyslipidemia, tobacco abuse. RESTING EKG: Sinus rhythm, no baseline ST segment changes noted but minor nonspecific T-wave changes noted. STRESS EKG: No significant changes noted with LexiScan bolus REASON FOR TERMINATION: Protocol. PROCEDURE REPORT: Baseline heart rate 73 beats per minute with blood pressure of 152/78. Patient had no significant complaints. Heart rate at 2 minutes post bolus 105 with a blood pressure of 155/66. 3 minutes post bolus heart rate 93 with blood pressure of 116/68. No significant EKG changes were noted. Patient had no significant complaints during the procedure or postprocedure. Patient injected with Aminophyllin 75 mg at 3 minutes or later after Lexiscan bolus. CONCLUSIONS: Normal EKG and hemodynamic response to IV LexiScan. NUCLEAR DATA: At rest the patient was given [10.13] millicuries of technetium 99 sestamibi injected intravenously. As per protocol rest gated SPECT images were obtained. Subsequently the patient was given intravenous LexiScan at a dose of 0.4 mg in 5 mL intravenously, followed by flush with normal saline. Subsequently the stress dose of [30.7] millicuries of technetium 99 sestamibi was injected intravenously. As per protocol stress gated images were obtained. NUCLEAR INTERPRETATION: Both raw and processed data were used for interpretation. Visual, qualitative, computer-generated quantitative data was used. There was good myocardial uptake of technetium compound. Motion artifact and soft tissue attenuations were noted. Increased visceral uptake was noted. No definitive areas of transient perfusion defect noted. No definitive areas of fixed perfusion defect or scars noted. EKG gated imaging showed LV EF at 53] %, rest and stress gated EF similar visually. T. I D. ratio was 1.13. Lung heart ratio noted to be within normal limits 0.31. No significant extracardiac and abnormal radiotracer activities were noted. RV free wall uptake was noted to be WNL. IMPRESSION: Also refer to comments under nuclear interpretation. Also test results needs to be interpreted in the context of pretest probability. 1. There is no definitive scintigraphic evidence of LexiScan induced myocardial ischemia. 2. There is no definitive scintigraphic evidence of myocardial infarction/scar. 3. EKG gated imaging shows left ejection fraction of approximately 53 %. 4. Clinical correlation requested as occasionally single vessel disease or balanced ischemia could be missed. In approximately 10% of the cases Lexiscan may not cause adequate vasodilatory stress. RECOMMENDATIONS: Aggressive risk factor modification, medical therapy. Clinical correlation with echocardiogram derived ejection fraction. Inability to exercise by itself can lead to increased cardiovascular event risks. Consider cardiology consultation and or follow-up if clinically indicated. I AM AVAILABLE FOR CARDIOLOGY CONSULTATION AND FOLLOWUP IF REQUESTED BY PMD Sharlene Bowers M.D., ANDREW Derrick Car Operator corporate general manager, Board certified in cardiovascular diseases, Nuclear cardiology, Echocardiography Cardiac CT and cardiac MRI Ph. [phone] [facility]OSPITALKimberley
[2016-12-18 12:43] LABS: CREATINE KINASE MB < 0.22 ng/mL (<4.55); TROPONIN I < 0.012 ng/mL
[2016-12-18] MEDS ORDERED: IBUPROFEN 800 MG TABLET PO PRN (15:28)
[2016-12-18] MEDS ORDERED: ONDANSETRON HCL INJ/PF 4 MG/2 ML SDV IV PRN (15:28)
[2016-12-18] MEDS ORDERED: ALPRAZOLAM 0.5 MG TABLET PO ONE (15:28)
[2016-12-18] MEDS ORDERED: LIDOCAINE 2% VISCOUS SOLN 20 ML UDCUP PO ONE (15:52)
[2016-12-18] MEDS ORDERED: METOCLOPRAMIDE HCL ORAL SOLN 10 MG/10 ML UDCUP PO ONE (15:52)
[2016-12-18] MEDS ORDERED: MAG HYDROX/AL HYDROX/SIMETH SUSP 30 ML UDCUP PO ONE (15:52)
--- NOTE | 2016-12-18 16:23 | PDOC DISCHARGE SUMMARY ---
General - Admit/Disc Date/PCP Admission Date/Primary Care Provider: 12/18/16 03:34 Discharge Date: 12/18/16 - Discharge Diagnosis (1) Chest pain, unspecified Is this a current diagnosis for this admission?: YesSummary: Cardiolite stress test is negative for ischemia. CTA of the chest/abdomen and pelvis is normal. Pain at the location of GE junction location, most likely GERD (2) Hypertensive urgency Is this a current diagnosis for this admission?: YesSummary: Improved with antihypertensives. Patient has been out of medications for 4 months after losing insurance (3) Diabetes Is this a current diagnosis for this admission?: YesSummary: Patient's HBA1C is 10.4. She has not taken any of her meds in 4 months . Prescriptions rewritten, both are on [facility] $4 list. She agrees to restart medications (4) Noncompliance with medication regimen Is this a current diagnosis for this admission?: YesSummary: Discharge planning was consulted . Patient has no insurance. Prescriptions on $ 4 list at [facility]. Follow up with [facility] (5) GERD with esophagitis Is this a current diagnosis for this admission?: YesSummary: Started on Zantac 150 mg bid for next 2 weeks. She can buy otc omeprazole. (6) Dyslipidemia Is this a current diagnosis for this admission?: YesSummary: Started on lovastatin 20 mg at - Additional Information Resuscitation Status: Full Code Discharge Diet: Diabetic Discharge Activity: Activity As Tolerated, Balance Activity w/Rest Home Medications: Metformin HCl [Glucophage 500 mg Tablet] 500 mg PO BID 08/16/11 Benazepril HCl [Lotensin] 50 mg PO DAILY 01/07/14 Tramadol HCl [Ultram 50 mg Tablet] 50 mg PO Q8HP PRN #0 tablet 01/07/14 Hydrochlorothiazide 25 mg PO DAILY #30 tablet 10/07/14 Metformin HCl [Glucophage 500 mg Tablet] 500 mg PO BID #30 tablet 10/07/14 Methocarbamol [Robaxin] 500 mg PO BID PRN #14 tablet 10/07/14 Acetaminophen [Tylenol 325 mg Tablet] 650 mg PO Q6HP PRN tablet 12/18/16 Benazepril HCl [Lotensin] 20 mg PO DAILY #30 tablet 12/18/16 Glimepiride [Amaryl 1 mg Tablet] 1 mg PO QAM #30 tablet 12/18/16 Ibuprofen [Motrin 800 mg Tablet] 800 mg PO Q8HP PRN #90 tablet 12/18/16 Metformin HCl [Glucophage] 1,000 mg PO Q12 #60 tablet 12/18/16 Ranitidine HCl [Zantac 150 mg Tablet] 150 mg PO BID #60 tablet 12/18/16 History of Present Illness Patient complains of: Chest pain History of Present Illness: DAYSI CATALAN is a 51 year old female with a past medical history of diabetes, dyslipidemia and hypertension who is been out of all medications for approximately 4 months and has been in her usual state of health until sudden onset of left-sided 5 out of 5 chest pain which radiated to the left arm and neck associated with palpitations, nausea and diaphoresis. She denies previous episode, pain is exacerbated by activity and reduced by nitroglycerin administered by EMS. EMS reports a blood pressure of 196/109 pulse of 90 and regular. In the emergency room she has an unremarkable workup and is referred to the hospitalist for admission. Patient states at least a month of heat intolerance, insomnia and anxiety. Hospital Course Hospital Course: CTA of chest/abdomen and pelvis are negative. Cardiolite stress test was read as negative for ischemia by Dr Bowers, cardiology. She had serial troponins which were all less than 0.012. She did have recurrent pain at the area of the GE junction. She was given GI cocktail and zofran IV. She was given new prescriptions for all her home medications that were on the [facility] $4 list. She was made an appointment in the [facility] for follow up. She saw the engineering coordinator as well during her stay Physical Exam Vital Signs: Temp Pulse Resp BP Pulse Ox 97.8 F 74 16 184/90 H 100 12/18/16 15:35 12/18/16 15:35 12/18/16 15:35 12/18/16 15:35 12/18/16 15:35 Intake & Output 12/17/16 12/18/16 12/19/16 06:59 06:59 06:59 Intake Total 0 180 Balance 0 180 Weight 73.7 kg General appearance: PRESENT: no acute distress, well-developed, well-nourished Head exam: PRESENT: atraumatic, normocephalic Eye exam: PRESENT: conjunctiva pink, EOMI, PERRLA. ABSENT: scleral icterus Ear exam: PRESENT: normal external ear exam Mouth exam: PRESENT: moist, tongue midline Neck exam: ABSENT: carotid bruit, JVD, lymphadenopathy, thyromegaly Respiratory exam: PRESENT: clear to auscultation lucy. ABSENT: rales, rhonchi, wheezes Cardiovascular exam: PRESENT: RRR. ABSENT: diastolic murmur, rubs, systolic murmur Pulses: PRESENT: normal dorsalis pedis pul Vascular exam: PRESENT: normal capillary refill GI/Abdominal exam: PRESENT: normal bowel sounds, soft. ABSENT: distended, guarding, mass, organolmegaly, rebound, tenderness Rectal exam: PRESENT: deferred Extremities exam: PRESENT: full ROM. ABSENT: calf tenderness, clubbing, pedal edema Neurological exam: PRESENT: alert, awake, oriented to person, oriented to place , oriented to time, oriented to situation, CN II-XII grossly intact. ABSENT: motor sensory deficit Psychiatric exam: PRESENT: appropriate affect, normal mood. ABSENT: homicidal ideation, suicidal ideation Skin exam: PRESENT: dry, intact, warm. ABSENT: cyanosis, rash Results Laboratory Results: 12/18/16 12/18/16 06:00 06:00 Triglycerides 274 H Cholesterol 238.05 H LDL Cholesterol Direct 125 H VLDL Cholesterol 54.8 H HDL Cholesterol 35 L Free T4 1.61 12/18/16 12/18/16 06:00 12:00 CK-MB (CK-2) < 0.22 < 0.22 Troponin I < 0.012 < 0.012 Impressions: Thyroid Ultrasound 12/18/16 00:00 IMPRESSION: Probable anatomic variant along the dorsal aspect right lower pole thyroid gland, with an accessory lobule. This has the same echotexture as the remainder the thyroid gland and correlates with CT findings from today, CT angio chest. Probably benign less than 5 mm nodule in left midpole thyroid gland Repeat ultrasound of the thyroid gland in 6 months is recommended to evaluate for any suspicious change Chest X-Ray 12/18/16 02:05 IMPRESSION: NO ACUTE RADIOGRAPHIC FINDING IN THE CHEST. Chest/Abdomen CTA 12/18/16 02:08 IMPRESSION: NO ABDOMINAL AORTIC ANEURYSM, DISSECTION OR SIGNIFICANT STENOSIS. NO SIGNIFICANT FINDINGS IN THE ABDOMEN/pelvis. Pelvis CTA 12/18/16 02:08 IMPRESSION: NO ABDOMINAL AORTIC ANEURYSM, DISSECTION OR SIGNIFICANT STENOSIS. NO SIGNIFICANT FINDINGS IN THE ABDOMEN/pelvis. Qualifiers PATEINT BEING DISCHARGED WITH ANY OF THE FOLLOWING DIAGNOSIS?: No Plan Discharge Plan: Home Time Spent: Less than 30 Minutes
[2016-12-18 16:50] VITALS: BP 185/89
[2016-12-18] MEDS ORDERED: METFORMIN HCL 500 MG TABLET PO SCH (22:00)
[2016-12-19] MEDS ORDERED: GLIMEPIRIDE 1 MG TABLET PO SCH (08:00)
== END 2016-12-18 17:15 | disposition home or self-care (01) ==
LOC: ER 02:02 → EH 03:34 → UNDOADMOB 03:44 → 5 04:40
PROVIDERS: ADMIT Internal Medicine; ATTEND Internal Medicine
DX: R07.9 Chest pain, unspecified (principal); I16.0 Hypertensive urgency; E10.65 Type 1 diabetes mellitus with hyperglycemia; Z91.19 Patient's noncompliance with other medical treatment and regimen; K21.0 Gastro-esophageal reflux disease with esophagitis; E78.5 Hyperlipidemia, unspecified; F17.210 Nicotine dependence, cigarettes, uncomplicated; R63.4 Abnormal weight loss; F41.9 Anxiety disorder, unspecified; E05.90 Thyrotoxicosis, unspecified without thyrotoxic crisis or storm; R68.89 Other general symptoms and signs; Z59.8 Other problems related to housing and economic circumstances; Z90.49 Acquired absence of other specified parts of digestive tract; Z98.51 Tubal ligation status; Z82.49 Family history of ischemic heart disease and other diseases of the circulatory system; Z82.5 Family history of asthma and other chronic lower respiratory diseases; Z80.1 Family history of malignant neoplasm of trachea, bronchus and lung; Z68.29 Body mass index [BMI] 29.0-29.9, adult
CPT/HCPCS: 93005; 99285; 36415; 84439; 82553; 82962; 84443; 85025; 80053; 81001; 84484; 80307; 83036; 80061; 93017; 71010; 76536; 78452; 71275; 74175; 72191; 93010; G0378 ×2; A9500; J2785; J1644; J1815; J3490 ×4; J0280; Q9969

== ENCOUNTER → 2017-04-01 | Outpatient (CLI) | payer OTHER ==
[2017-04-01 10:14] LABS: ALANINE AMINOTRANSFERASE 28 U/L (9-52); ALBUMIN 4.4 g/dL (3.5-5.0); ALKALINE PHOSPHATASE 148 U/L (38-126); ANION GAP 12 (5-19); ASPARTATE AMINO TRANSFERASE 16 U/L (14-36); BILIRUBIN,DIRECT 0.3 mg/dL (0.0-0.4); BILIRUBIN,TOTAL 0.5 mg/dL (0.2-1.3); BLOOD UREA NITROGEN 11 mg/dL (7-20); CALCIUM 10.3 mg/dL (8.4-10.2); CARBON DIOXIDE 26 mmol/L (22-30); CHLORIDE 103 mmol/L (98-107); CHOLESTEROL 274.35 mg/dL (0-200); CREATININE RESULT 0.81 mg/dL (0.52-1.25); Direct HDL 43 mg/dL (>40); GLUCOSE 204 mg/dL (75-110); POTASSIUM 4.4 mmol/L (3.6-5.0); SODIUM 140.6 mmol/L (137-145); TRIGLYCERIDES 355 mg/dL (<150)
[2017-04-01 10:25] LABS: DIRECT LDL 144 mg/dL (<100)
== END ==
LOC: CCC 09:01
DX: E78.4 Other hyperlipidemia (principal); E11.8 Type 2 diabetes mellitus with unspecified complications
CPT/HCPCS: 36415; 80053; 80061; 83036; 84443; 87086

== ENCOUNTER → 2017-04-01 | Outpatient (CLI) | payer SELFPAY ==
--- NOTE | 2017-04-01 12:42 | RADIOLOGY REPORT (SQ) ---
EXAM DESCRIPTION: KNEE LEFT 4 VIEW COMPLETED DATE/TIME: 04/01/2017 8:34 am REASON FOR STUDY: M25.562 PAIN IN LEFT KNEE M25.562 PAIN IN LEFT KNEE COMPARISON: None. NUMBER OF VIEWS: Four views. TECHNIQUE: AP, lateral, and both oblique radiographic images acquired of the left knee. LIMITATIONS: None. FINDINGS: MINERALIZATION: Normal. BONES: No acute fracture or dislocation. No worrisome bone lesions. No significant osteophytes. JOINT: No effusion. No chondrocalcinosis. OTHER: No other significant finding. IMPRESSION: NEGATIVE STUDY OF THE LEFT KNEE. NO EXPLANATION FOR PAIN. TECHNICAL DOCUMENTATION: JOB ID: [id number] [employer]- All Rights Reserved
== END ==
LOC: RAD 08:19
PROVIDERS: ATTEND Family Medicine
DX: M25.562 Pain in left knee (principal)

== ENCOUNTER → 2017-04-15 | Outpatient (CLI) | payer OTHER ==
--- NOTE | 2017-04-15 10:09 | WOMENS IMAGING REPORT ---
EXAM DESCRIPTION: BILAT SCREENING MAMMO W/CAD COMPLETED DATE/TIME: 04/15/2017 7:28 am REASON FOR STUDY: SCREENING MAMMO Z12.31 ENCNTR SCREEN MAMMOGRAM FOR MALIGNANT NEOPLASM OF MANNY COMPARISON: No previous, baseline TECHNIQUE: Standard craniocaudal and mediolateral oblique views of each breast recorded using digita l acquisition. LIMITATIONS: None. FINDINGS: No masses, calcifications or architectural distortion. No areas of suspicion. Read with the assistance of CAD. .[facility] - R2 C[employer]ova Version 1.3 .[facility] - R2 Cenova Version 1.3 .[facility] - R2 Cenova Version 2.4 .[facility] [place] R2 Cenova Version 2.4 .[facility] - R2 [employer] Manager Version 9.2 IMPRESSION: NORMAL MAMMOGRAM. BIRADS 1. BREAST DENSITY: b. There are scattered areas of fibroglandular density. BIRAD: 1 NEGATIVE RECOMMENDATION: ROUTINE SCREENING COMMENT: The patient has been notified of the results by letter per SA requirements. Additional no tification policies are in place for contacting patient with suspicious or incomplete findings. Quality ID #[id number]: The [employer] recommends an annual screening mammogram for women aged 40 years or over. This facility utilizes a reminder system to ensure that all patients receive reminder letters, and/or direct phone calls for appointments. This includes reminders for routine scr eening mammograms, diagnostic mammograms, or other Breast Imaging Interventions when appropriate. Th is patient will be placed in the appropriate reminder system. The [employer] (A[employer]) has developed recommendations for screening MRI of the breast s in certain patient populations, to be used in conjunction with mammography. Breast MRI surveillanc e may be appropriate for women with more than 20% lifetime risk of developing breast cancer as deter mined by genetic testing, significant family history of the disease, or history of mantle radiation f or Hodgkins Disease. ACR Practice Guidelines 2008. TECHNICAL DOCUMENTATION: FINDING NUMBER: (1) ASSESSMENT: (1) JOB ID: [id number] [employer]- All Rights Reserved
== END ==
LOC: WI 07:02
DX: Z12.31 Encounter for screening mammogram for malignant neoplasm of breast (principal)
CPT/HCPCS: 77067; G0202

== ENCOUNTER 2017-07-01 10:29 | Emergency (ER) | payer SELFPAY ==
[2017-07-01] MEDS ORDERED: LIDOCAINE 5% (700 MG) TRANSDERMAL ADH..PATCH TP ONE (11:34)
[2017-07-01] MEDS ORDERED: HYDROCODONE/ACETAMINOPHEN 5-325 MG TABLET PO ONE (11:37)
--- NOTE | 2017-07-01 11:42 | ER Document Report ---
ED Neck/Back Problem - General Chief Complaint: Low Back Pain Stated Complaint: BACK PAIN Time Seen by Provider: 07/01/17 11:19 Mode of Arrival: Ambulatory Information source: Patient Notes: 52-year-old female presented to ED for lower back pain radiating down both legs since May. She states she seen at the [facility] and they sent her home with ibuprofen. She states this is no longer helping her. She states she is also a diabetic she has been taken metformin and they started on Lantus insulin. She states that she was seen at the [facility] this morning and her sugar was 216. She is told him that she had taken her Lantus insulin this morning. They said do not take anymore Lantus today to take it tomorrow in the evening. Patient is alert and oriented states that this pain is been going on for a long time worse since May. TRAVEL OUTSIDE OF THE [place] IN LAST 30 DAYS: No - HPI Patient complains to provider of: Lower back Onset: Other - Chronic Onset: Chronic Timing: Waxing and waning Quality of pain: Burning, Sharp Severity: Severe Pain Level: 5 Recent injury: No Associated symptoms: Like prior neck/back pain, Radiation to leg, Lower back pain. denies: Constipation, Incontinence, Motor loss, Numbness/tingling, Sensory loss, Sweaty, Unable to urinate Exacerbated by: Movement of trunk Relieved by: Nothing Similar symptoms previously: Yes Recently seen / treated by doctor: Yes - Related Data Allergies/Adverse Reactions: levofloxacin [From Levaquin] Allergy (Verified 07/01/17 10:30) nitrofurantoin [From Macrobid] Allergy (Verified 07/01/17 10:30) tramadol Adverse Reaction (Verified 07/01/17 10:30) Past Medical History - General Information source: Patient - Social History Smoking Status: Former Smoker Cigarette use (# per day): No Chew tobacco use (# tins/day): No Smoking Education Provided: No Frequency of alcohol use: None Drug Abuse: None Lives with: Family Family History: CAD, COPD, CVA, Hyperlipidemia, Hypertension, Malignancy - Father of lung cancer, Thyroid Disfunction. denies: DM Patient has suicidal ideation: No Patient has homicidal ideation: No - Past Medical History Cardiac Medical History: Reports: Hx Hypercholesterolemia, Hx Hypertension Pulmonary Medical History: Reports: None EENT Medical History: Reports: None Neurological Medical History: Reports: None Endocrine Medical History: Reports: Hx Diabetes Mellitus Type 2 Renal/ Medical History: Reports: None Malignancy Medical History: Reports: None GI Medical History: Reports: None Musculoskeltal Medical History: Reports Hx Arthritis, Reports Hx Musculoskeletal Deformity Skin Medical History: Reports None Psychiatric Medical History: Reports: Hx Depression Traumatic Medical History: Reports: None Infectious Medical History: Reports: None Past Surgical History: Reports: Hx Cholecystectomy, Hx Tubal Ligation - Immunizations Immunizations up to date: Yes Hx Diphtheria, Pertussis, Tetanus Vaccination: No Hx Pneumococcal Vaccination: 05/18/00 Review of Systems - Review of Systems Constitutional: No symptoms reported EENT: No symptoms reported Cardiovascular: No symptoms reported Respiratory: No symptoms reported Gastrointestinal: No symptoms reported. denies: Constipation, Fecal incontinence Genitourinary: No symptoms reported. denies: Incontinence, Retention Female Genitourinary: No symptoms reported Musculoskeletal: Back pain, Muscle pain, Muscle stiffness, Other - Sciatica Skin: No symptoms reported Hematologic/Lymphatic: No symptoms reported Neurological/Psychological: No symptoms reported. denies: Weakness, Gait changes, Loss of power, Numbness, Tingling -: Yes All other systems reviewed and negative Physical Exam - Vital signs Vitals: Temp Pulse Resp BP Pulse Ox 98.0 F 86 18 178/86 H 99 07/01/17 10:34 07/01/17 10:34 07/01/17 10:34 07/01/17 10:34 07/01/17 10:34 Interpretation: Normal - General General appearance: Appears well, Alert - HEENT Head: Normocephalic, Atraumatic Eyes: Normal Pupils: PERRL - Respiratory Respiratory status: No respiratory distress Chest status: Nontender Breath sounds: Normal Chest palpation: Normal - Cardiovascular Rhythm: Regular Heart sounds: Normal auscultation Murmur: No - Abdominal Inspection: Normal Distension: No distension Bowel sounds: Normal Tenderness: Nontender Organomegaly: No organomegaly - Back Back: Normal, Tender, Vertebra tenderness - Lumbar area. No: Deformity/step-off , CVA tenderness, Scars, Scoliosis, Wounds Notes: Denies any saddle anesthesia, denies any signs or symptoms of cauda equina, denies any loss control of bowel bladder, denies any loss of control of lower legs, or denies any loss of sensation to legs. Patient's reflux to legs 2. - Extremities General upper extremity: Normal inspection, Nontender, Normal color, Normal ROM , Normal temperature General lower extremity: Normal inspection, Nontender, Normal color, Normal ROM , Normal temperature, Normal weight bearing. No: Hugh's sign - Neurological Neuro grossly intact: Yes Cognition: Normal Orientation: AAOx4 [place] Coma Scale Eye Opening: Spontaneous [place] Coma Scale Verbal: Oriented [place] Coma Scale Motor: Obeys Commands Cordell Coma Scale Total: 15 Speech: Normal Motor strength normal: LUE, RUE, LLE, RLE Sensory: Normal - Psychological Associated symptoms: Normal affect, Normal mood - Skin Skin Temperature: Warm Skin Moisture: Dry Skin Color: Normal Course - Re-evaluation Re-evalutation: 07/01/17 14:18 This patient is demonstrating signs and symptoms of low back pain with sciatica. This is a chronic problem. She has not fallen or had any new injuries. She denies any signs or symptoms of cauda equina, no loss of sensation to the lower legs or any saddle anesthesia, any loss of control of bowel bladder is or loss control of the lower extremities. She states [facility] and they have ordered MRIs and follow-up studies for the patient. I recommended patient follow-up with pain management for this pain. - Vital Signs Vital signs: Temp Pulse Resp BP Pulse Ox 98.0 F 85 16 143/88 H 100 07/01/17 11:54 07/01/17 11:54 07/01/17 11:54 07/01/17 11:54 07/01/17 11:54 Discharge - Discharge Clinical Impression: Low back pain Qualifiers: Chronicity: chronic Back pain laterality: unspecified Sciatica presence: with sciatica Sciatica laterality: bilateral sciatica Qualified Code(s): M54.41 - Lumbago with sciatica, right side Condition: Stable Disposition: HOME, SELF-CARE Additional Instructions: LOW BACK PAIN: Three out of every four people will have an episode of disabling back pain during their lifetime. Most commonly the pain is due to straining of the muscles and ligaments in the low back. Usual treatment includes: (1) Rest on a firm surface. Avoid lying on your stomach. (2) Ice pack the painful area. After a few days, gentle heat may be used intermittently to relax the area, or ice packs can be continued. (3) Medication may be needed -- muscle relaxers and antiinflammatory medicines are commonly used. (4) As the back improves, exercises are prescribed to strengthen the back and abdominal muscles. Your doctor will advise you on the proper care for your back at each stage in your recovery. You may be better in a few days -- or healing may take several weeks. If new symptoms of a "herniated disc" (radiation of pain, numbness, or tingling down the back of the leg or weakness in the leg) occur, you should be re-examined. Further testing may be necessary. ORAL NARCOTIC MEDICATION: You have been given a norco for pain control. This medication is a narcotic. It's best taken with food, as nausea can result if taken on an empty stomach. Don't operate machinery or drive within six hours of taking this medication. Do not combine this medicine with alcohol, or with any medication which can cause sedation (such as cold tablets or sleeping pills) unless you get permission from the physician. Narcotics tend to cause constipation. If possible, drink plenty of fluids and eat a diet high in fiber and fruits. Please be aware that prescription narcotics also have the potential for abuse. People become addicted to these medications because of the general sense of wellbeing that they induce. This feeling along with a significant reduction in tension, anxiety, and aggression provides a stimulating seductive quality to these drugs. Once your pain is under control, we encourage you to discard your unused narcotics. Stretching Exercises for the Back The physician has recommended that you begin stretching exercises for your back. These are often used even while the back is painful. However, you should notify the physician if the activities seem to increase your pain. PELVIC TILT: Lie flat on your back with knees bent. Tighten your stomach and buttock muscles so it flattens your lower back against the floor. Hold 10 seconds. Repeat 10 times, twice daily. KNEE RAISE: Lying on the back with knees bent, raise one knee to your chest, then the other. Hold both knees against the chest 10 seconds, then lower one knee at a time. Repeat 10 times, twice daily. PARTIAL TRUNK RAISE: Lie face down, arms at your sides. Keeping your waist on the floor, use your arms raise your chest up. Support yourself on your elbows for 30 seconds. Repeat twice daily, increasing the time to two minutes as you recover. ICE PACKS: Apply ice packs frequently against the painful area. Many different schedules are recommended, such as "20 minutes on, 20 minutes off" or "one hour ice, two hours rest." If you need to work, you may need to go longer between ice treatments. You should plan to have the area ice packed AT LEAST one fourth of the time. The ice should be applied over the wrap, tape, or splint, or over a layer of cloth -- not directly against the skin. Some ice bags have a built-in cloth and can be put directly on the skin. WARM PACKS: After approximately two days, apply gentle heat (such as a heating pad or hot water bottle) for about 20 to 30 minutes about every two hours -- at least four times daily. Warmth and elevation will help you make a more rapid recovery , and will ease the pain considerably. Do not use HOT heat, and never apply heat for longer than 30 minutes. The continuous heat can invisibly damage skin and muscles -- even when no burn is seen on the surface. Damaged muscles can make you MORE sore. Lidoderm patch must come off in 12 hours. Please use your ibuprofen every 8 hours as you have been instructed. After the lidocaine patches off and 12 hours tomorrow morning you can start using Aspercreme lidocaine which will also help your pain. FOLLOW-UP CARE: If you have been referred to a physician for follow-up care, call the physician s office for an appointment as you were instructed or within the next two days. If you experience worsening or a significant change in your symptoms, notify the physician immediately or return to the Emergency Department at any time for re-evaluation. Forms: Elevated Blood Pressure Referrals: [facility] [Provider Group] - Follow up as needed [facility] [Provider Group] - Follow up as needed
[2017-07-01 12:12] VITALS: BP 143/88
== END 2017-07-01 12:03 | disposition home or self-care (01) ==
LOC: ER 10:29
DX: M54.41 Lumbago with sciatica, right side (principal); E78.00 Pure hypercholesterolemia, unspecified; I10 Essential (primary) hypertension; E11.9 Type 2 diabetes mellitus without complications; Z90.49 Acquired absence of other specified parts of digestive tract; Z98.51 Tubal ligation status; Z79.84 Long term (current) use of oral hypoglycemic drugs; Z79.4 Long term (current) use of insulin
CPT/HCPCS: 99283

== ENCOUNTER 2018-08-25 12:33 | Emergency (ER) | payer SELFPAY ==
[2018-08-25 12:43] VITALS: BP 168/94
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
[2018-08-25 13:49] LABS: ABSOLUTE BASOPHILS # (AUTO) 0.1 10^3/uL (0.0-0.2); ABSOLUTE EOSINOPHILS # (AUTO) 0.1 10^3/uL (0.0-0.6); ABSOLUTE MONOCYTES (AUTO) 0.6 10^3/uL (0.1-1.4); ABSOLUTE NEUT (AUTO) 3.4 10^3/uL (1.7-8.2); BASOPHILS % (AUTO) 1.5 % (0-2); EOSINOPHILS % (AUTO) 1.2 % (0-6); HEMATOCRIT 44.8 % (36.0-47.0); HEMOGLOBIN 15.3 g/dL (12.0-15.5); MEAN CORPUSCULAR HEMOGLOBIN 29.7 pg (27.0-33.4); MEAN CORPUSCULAR HGB CONC 34.2 g/dL (32.0-36.0); MEAN CORPUSCULAR VOLUME 87 fl (80-97); MONOCYTES % (AUTO) 7.9 % (3-13); PLATELET COUNT 222 10^3/uL (150-450); RED BLOOD COUNT 5.16 10^6/uL (3.72-5.28); RED CELL DISTRIBUTION WIDTH 13.4 % (11.5-14.0); SEGMENTED NEUTROPHILS % (AUTO) 47.4 % (42-78); TOTAL CELLS COUNTED % (AUTO) 100 %; WHITE BLOOD COUNT 7.2 10^3/uL (4.0-10.5)
[2018-08-25 14:09] LABS: APPEARANCE,URINE SLIGHTLY-CLOUDY; BILIRUBIN,URINE NEGATIVE (NEGATIVE); COLOR,URINE YELLOW; GLUCOSE, URINE >=500 mg/dL (NEGATIVE); KETONES,URINE TRACE mg/dL (NEGATIVE); LEUKOCYTE ESTERASE,URINE NEGATIVE (NEGATIVE); NITRITE,URINE NEGATIVE (NEGATIVE); PROTEIN,URINE 30 mg/dL (NEGATIVE); URINE SPECIFIC GRAVITY 1.025
[2018-08-25 14:13] LABS: ALANINE AMINOTRANSFERASE 32 U/L (9-52); ALBUMIN 4.5 g/dL (3.5-5.0); ALKALINE PHOSPHATASE 176 U/L (38-126); ANION GAP 9 (5-19); ASPARTATE AMINO TRANSFERASE 21 U/L (14-36); BILIRUBIN,DIRECT 0.2 mg/dL (0.0-0.4); BILIRUBIN,TOTAL 0.6 mg/dL (0.2-1.3); BLOOD UREA NITROGEN 17 mg/dL (7-20); CALCIUM 10.5 mg/dL (8.4-10.2); CARBON DIOXIDE 27 mmol/L (22-30); CHLORIDE 104 mmol/L (98-107); GLUCOSE 244 mg/dL (75-110); POTASSIUM 4.1 mmol/L (3.6-5.0); TOTAL PROTEIN 7.8 g/dL (6.3-8.2)
--- NOTE | 2018-08-25 14:14 | RADIOLOGY REPORT (SQ) ---
EXAM DESCRIPTION: CT HEAD WITHOUT COMPLETED DATE/TIME: 08/25/2018 1:58 pm REASON FOR STUDY: off balance, ?stroke symptoms COMPARISON: None. TECHNIQUE: Axial images acquired through the brain without intravenous contrast. Images reviewed wi th bone, brain and subdural windows. Additional sagittal and coronal reconstructions were generated. Images stored on PACS. All CT scanners at this facility use dose modulation, iterative reconstruction, and/or weight based d osing when appropriate to reduce radiation dose to as low as reasonably achievable (ALARA). [facility]: Dose Right [facility]: CareDose [facility]: Dose Right [facility]: Teradose 4D [facility]: IOCOM RADIATION DOSE: CT Rad equipment meets quality standard of care and radiation dose reduction techniq ues were employed. CTDIvol: 53.2 mGy. DLP: 1097 mGy-cm. mGy. LIMITATIONS: None. FINDINGS: VENTRICLES: Normal size and contour. CEREBRUM: No masses. No hemorrhage. No midline shift. No evidence for acute infarction. Normal gra y/white matter differentiation. No areas of low density in the white matter. CEREBELLUM: No masses. No hemorrhage. No alteration of density. No evidence for acute infarction. EXTRAAXIAL SPACES: No fluid collections. No masses. ORBITS AND GLOBE: No intra- or extraconal masses. Normal contour of globe without masses. CALVARIUM: No fracture. PARANASAL SINUSES: No fluid or mucosal thickening. SOFT TISSUES: No mass or hematoma. OTHER: The patient is adentulous. IMPRESSION: No evidence of acute intracranial abnormality. EVIDENCE OF ACUTE STROKE: NO. COMMENT: Quality ID # [id number]: Final reports with documentation of one or more dose reduction techniques (e.g., Automated exposure control, adjustment of the mA and/or kV according to patient size, use of iterative reconstruction technique) TECHNICAL DOCUMENTATION: JOB ID: [id number] [employer]- All Rights Reserved Reading location - IP/workstation name: [email or web address]
[2018-08-25] MEDS ORDERED: HYDROCODONE/ACETAMINOPHEN 5-325 MG (6 TAB/ER DISP) PO PRN (16:16)
--- NOTE | 2018-08-25 16:21 | ER Document Report ---
ED General - General Chief Complaint: General Weakness Stated Complaint: LIGHTHEADED,DIZZY,LEG PAIN Time Seen by Provider: 08/25/18 12:53 Mode of Arrival: Wheelchair Notes: 53 female with hypertension and uncontrolled diabetes presents to the emergency department with bilateral burning knee pain feeling off kilter. She is very angry and disrespectful to the staff and told the triage provider that she was a racist. When I met with the patient she was extremely argumentative but ultimately calm down. Patient states that she is in excruciating pain and just "wants the pain to go away". She denies headache, dizziness, lightheadedness, shortness of breath, chest pain, nausea or vomiting, abdominal pain. She does complain of numbness and paresthesias in her bilateral lower extremities and intermittent paresthesias in her bilateral upper extremities. No other complaints TRAVEL OUTSIDE OF THE [place] IN LAST 30 DAYS: No - Related Data Allergies/Adverse Reactions: levofloxacin [From Levaquin] Allergy (Verified 08/25/18 13:05) nitrofurantoin [From Macrobid] Allergy (Verified 08/25/18 13:05) tramadol Adverse Reaction (Verified 08/25/18 13:05) Past Medical History - General Information source: Patient - Social History Smoking Status: Current Every Day Smoker Chew tobacco use (# tins/day): No Frequency of alcohol use: None Drug Abuse: None Family History: CAD, COPD, CVA, Hyperlipidemia, Hypertension, Malignancy - Father of lung cancer, Thyroid Disfunction. denies: DM Patient has suicidal ideation: No Patient has homicidal ideation: No - Past Medical History Cardiac Medical History: Reports: Hx Hypercholesterolemia, Hx Hypertension Endocrine Medical History: Reports: Hx Diabetes Mellitus Type 2 Renal/ Medical History: Denies: Hx Peritoneal Dialysis Musculoskeletal Medical History: Reports Hx Arthritis, Reports Hx Musculoskeletal Deformity Psychiatric Medical History: Reports: Hx Depression Past Surgical History: Reports: Hx Cholecystectomy, Hx Tubal Ligation - Immunizations Immunizations up to date: Yes Hx Diphtheria, Pertussis, Tetanus Vaccination: No Hx Pneumococcal Vaccination: 05/18/00 Review of Systems - Review of Systems Constitutional: See HPI EENT: No symptoms reported Cardiovascular: See HPI Respiratory: See HPI Gastrointestinal: See HPI Genitourinary: No symptoms reported Female Genitourinary: No symptoms reported Musculoskeletal: No symptoms reported Skin: No symptoms reported Hematologic/Lymphatic: No symptoms reported Neurological/Psychological: See HPI Physical Exam - Vital signs Vitals: Temp Pulse Resp BP Pulse Ox 97.8 F 93 18 168/94 H 99 08/25/18 12:42 08/25/18 12:42 08/25/18 12:42 08/25/18 12:42 08/25/18 12:42 - Notes Notes: PHYSICAL EXAMINATION: Reviewed vital signs and charting by RN GENERAL: Alert, argumentative. No acute distress. HEAD: Normocephalic, atraumatic. EYES: Pupils equal and round. Extraocular movements intact. ENT: Oral mucosa moist, tongue midline. NECK: Full range of motion. Supple. Trachea midline. LUNGS: Clear to auscultation bilaterally, no wheezes, rales, or rhonchi. No respiratory distress. HEART: Regular rate and rhythm. No murmur ABDOMEN: soft, non-tender. Non-distended. Bowel sounds present. no McBurney's point tenderness, no Portillo sign. EXTREMITIES: Moves all 4 extremities spontaneously. No edema, No cyanosis. Reduced sensation bilateral lower extremities from the knee distal, strength 5/5 in all 4 extremities BACK: No CVAT NEUROLOGIC: Oriented and appropriate. Normal speech. PSYCH: Normal affect, normal mood. SKIN: Warm, dry, normal turgor. No rashes or lesions noted. Course - Re-evaluation Re-evalutation: 08/26/18 11:52 Patient skull that me and very argumentative to start. She was extremely frustrated that she had to repeat her story 5 times and felt that she was not getting good care. Again as stated in the HPI she called the triage provider lakshmi. Patient has received good care. Patient's symptoms consistent with diabetic neuropathy. Blood pressure is not well controlled. She has been on hydrochlorothiazide and metformin in the past but has poor compliance. I have given her a one-month supply of each of those and told [facility]. I told her we cannot manage her primary care problems in the emergency department because we cannot establish a long-term relationship. Patient was agreeable to the plan and calm down. Stable for discharge - Vital Signs Vital signs: Temp Pulse Resp BP Pulse Ox 97.8 F 93 18 168/94 H 99 08/25/18 12:42 08/25/18 12:42 08/25/18 12:42 08/25/18 12:42 08/25/18 12:42 - Laboratory Result Diagrams: 08/25/18 13:18 08/25/18 13:18 Laboratory results interpreted by me: 08/25/18 08/25/18 08/25/18 13:18 13:18 14:51 Glucose 244 H POC Glucose 273 H Calcium 10.5 H Alkaline Phosphatase 176 H Urine Protein 30 H Urine Glucose (UA) >=500 H Urine Ketones TRACE H Urine Urobilinogen 2.0 H Discharge - Discharge Clinical Impression: Diabetic neuropathy, Hypertension, Hyperglycemia Condition: Good Disposition: HOME, SELF-CARE Additional Instructions: You were seen in the emergency department for symptoms that are consistent with diabetic neuropathy. This happens when her blood sugar is not controlled well over a long period of time. Symptoms include burning of your extremities numbness and tingling of your feet and toes, possibly of your hands as well. Your blood sugar was high today. Your blood pressure was high as well. I have given you a prescription for metformin for 1 month and I have also given you a prescription for hydrochlorothiazide which is a blood pressure medication that he should take once daily. Also have given you a short course of pain medication. Please note this is not the best medication to treat this type of pain but hopefully will give you some short-term relief. Also given you information for [facility]. It is important to try to follow- up with them in establish with primary care as it is difficult for us to manage these conditions in the ER. If you develop severe chest pain, nausea or vomiting, have paralysis of one or more of your extremities please merely return to the emergency department. Prescriptions: RX: Hydrochlorothiazide [Hydrodiuril 12.5 mg Tablet] 12.5 mg PO QAM #30 capsule RX: Metformin HCl 1,000 mg PO BID #60 tablet
--- NOTE | 2018-08-26 11:00 | EKG REPORT ---
SEVERITY:- ABNORMAL ECG - SINUS RHYTHM PROBABLE LEFT ATRIAL ABNORMALITY LEFT VENTRICULAR HYPERTROPHY ABNORMAL T, CONSIDER ISCHEMIA, LATERAL LEADS : Confirmed by: Sharlene Bowers 26-Aug-2018 11:00:01
== END 2018-08-25 16:33 | disposition home or self-care (01) ==
LOC: ER 12:33
DX: E11.40 Type 2 diabetes mellitus with diabetic neuropathy, unspecified (principal); E11.65 Type 2 diabetes mellitus with hyperglycemia; I10 Essential (primary) hypertension; R20.0 Anesthesia of skin; R20.2 Paresthesia of skin; F17.200 Nicotine dependence, unspecified, uncomplicated; Z88.1 Allergy status to other antibiotic agents
CPT/HCPCS: 36415; 70450; 80053; 81001; 82962; 85025; 93005; 93010; 99285

== ENCOUNTER 2019-01-03 09:38 | Emergency (ER) | payer SELFPAY ==
[2019-01-03 09:44] VITALS: BP 182/100
[2019-01-03] MEDS ORDERED: MORPHINE SULFATE 10 MG/ML INJ IV ONE (09:57)
--- NOTE | 2019-01-03 09:59 | ER Document Report ---
ED Medical Screen (RME) - General Chief Complaint: Abdominal Pain Stated Complaint: ABDOMINAL PAIN Time Seen by Provider: 01/03/19 09:49 Mode of Arrival: Ambulatory Information source: Patient Notes: Patient is a 53-year-old female presents emergency department chief complaint of left lower quadrant abdominal pain. Patient also reports left low back pain. She states the left low back pain is chronic and she has been diagnosed with sciatica in the past. She states the left lower quadrant abdominal pain is new and started 2 days ago. She reports it as a sharp stabbing pain that is severe in nature. She denies any alleviating or aggravating factors. She denies any dysuria, nausea, vomiting, diarrhea or fevers. Exam: Point tenderness to the left lower quadrant. Patient rocking back and forth in the chair in triage appearing to be in moderate distress. I have greeted and performed a rapid initial assessment of this patient. A comprehensive ED assessment and evaluation of the patient, analysis of test results and completion of the medical decision making process will be conducted by additional ED providers. I have specifically instructed the patient or family members with the patient to immediately return to any nursing staff should anything change in the patient's condition or with their chief complaint. This medical record was dictated with voice recognizing software. There may be grammatical, syntax errors that are unintended. TRAVEL OUTSIDE OF THE [place] IN LAST 30 DAYS: No - Related Data Allergies/Adverse Reactions: levofloxacin [From Levaquin] Allergy (Verified 08/25/18 13:05) nitrofurantoin [From Macrobid] Allergy (Verified 08/25/18 13:05) tramadol Adverse Reaction (Verified 08/25/18 13:05) Past Medical History - Past Medical History Cardiac Medical History: Reports: Hx Hypercholesterolemia, Hx Hypertension Endocrine Medical History: Reports: Hx Diabetes Mellitus Type 2 Renal/ Medical History: Denies: Hx Peritoneal Dialysis Musculoskeltal Medical History: Reports Hx Arthritis, Reports Hx Musculoskeletal Deformity Psychiatric Medical History: Reports: Hx Depression Past Surgical History: Reports: Hx Cholecystectomy, Hx Tubal Ligation - Immunizations Immunizations up to date: Yes Hx Diphtheria, Pertussis, Tetanus Vaccination: No Physical Exam - Vital signs Vitals: Temp Pulse Resp BP Pulse Ox 98.3 F 93 20 182/100 H 99 01/03/19 09:42 01/03/19 09:42 01/03/19 09:42 01/03/19 09:42 01/03/19 09:42 Course - Vital Signs Vital signs: Temp Pulse Resp BP Pulse Ox 98.3 F 93 20 182/100 H 99 01/03/19 09:42 01/03/19 09:42 01/03/19 09:42 01/03/19 09:42 01/03/19 09:42
[2019-01-03 10:36] LABS: APPEARANCE,URINE SLIGHTLY-CLOUDY; BILIRUBIN,URINE SMALL (NEGATIVE); GLUCOSE, URINE 50 mg/dL (NEGATIVE); KETONES,URINE TRACE mg/dL (NEGATIVE); LEUKOCYTE ESTERASE,URINE NEGATIVE (NEGATIVE); NITRITE,URINE NEGATIVE (NEGATIVE); PROTEIN,URINE 100 mg/dL (NEGATIVE); URINE SPECIFIC GRAVITY 1.035
[2019-01-03 10:38] LABS: COLOR,URINE YELLOW
[2019-01-03 10:41] LABS: ABSOLUTE BASOPHILS # (AUTO) 0.2 10^3/uL (0.0-0.2); ABSOLUTE EOSINOPHILS # (AUTO) 0.2 10^3/uL (0.0-0.6); ABSOLUTE LYMPHOCYTES (AUTO) 3.5 10^3/uL (0.5-4.7); ABSOLUTE MONOCYTES (AUTO) 0.9 10^3/uL (0.1-1.4); ABSOLUTE NEUT (AUTO) 4.6 10^3/uL (1.7-8.2); EOSINOPHILS % (AUTO) 1.8 % (0-6); HEMATOCRIT 43.6 % (36.0-47.0); HEMOGLOBIN 14.9 g/dL (12.0-15.5); LYMPHOCYTES % (AUTO) 36.9 % (13-45); MEAN CORPUSCULAR HEMOGLOBIN 29.6 pg (27.0-33.4); MEAN CORPUSCULAR HGB CONC 34.2 g/dL (32.0-36.0); MEAN CORPUSCULAR VOLUME 87 fl (80-97); MONOCYTES % (AUTO) 9.8 % (3-13); PLATELET COUNT 242 10^3/uL (150-450); RED BLOOD COUNT 5.04 10^6/uL (3.72-5.28); RED CELL DISTRIBUTION WIDTH 12.8 % (11.5-14.0); SEGMENTED NEUTROPHILS % (AUTO) 49.5 % (42-78); TOTAL CELLS COUNTED % (AUTO) 100 %; WHITE BLOOD COUNT 9.4 10^3/uL (4.0-10.5)
[2019-01-03 10:42] LABS: ALBUMIN 4.7 g/dL (3.5-5.0); ALKALINE PHOSPHATASE 135 U/L (38-126); ANION GAP 10 (5-19); ASPARTATE AMINO TRANSFERASE 21 U/L (14-36); BILIRUBIN,DIRECT 0.3 mg/dL (0.0-0.4); BILIRUBIN,TOTAL 0.9 mg/dL (0.2-1.3); BLOOD UREA NITROGEN 14 mg/dL (7-20); CALCIUM 10.2 mg/dL (8.4-10.2); CARBON DIOXIDE 28 mmol/L (22-30); CHLORIDE 100 mmol/L (98-107); GLUCOSE 256 mg/dL (75-110); POTASSIUM 3.6 mmol/L (3.6-5.0)
--- NOTE | 2019-01-03 10:55 | ER Document Report ---
ED General - General Chief Complaint: Abdominal Pain Stated Complaint: ABDOMINAL PAIN Time Seen by Provider: 01/03/19 09:49 Mode of Arrival: Ambulatory TRAVEL OUTSIDE OF THE [place] IN LAST 30 DAYS: No - HPI Notes: Patient is a 53-year-old female with a history of sciatica who presents to the emergency department for evaluation of left-sided back pain as well as left lower quadrant abdominal pain. She states her back pain started becoming more aggravated over the last week. She took an oxycodone and Neurontin from a family member. She states that improved, but she continued to have belly pain over the last 2 days. She denies any fevers or chills. No nausea or vomiting. Eating and drinking normally. Normal bowel movements. No urinary symptoms, no vaginal discharge. Her pain is made worse by movement, nothing seems to make it better. She currently rates it a 9 out of 10. On further questioning, the patient does have a history of high blood pressure. She ran out of her blood pressure medications 2 months ago and has not yet gotten them refilled. She states she does not have insurance currently. - Related Data Allergies/Adverse Reactions: levofloxacin [From Levaquin] Allergy (Verified 08/25/18 13:05) nitrofurantoin [From Macrobid] Allergy (Verified 08/25/18 13:05) tramadol Adverse Reaction (Verified 08/25/18 13:05) Past Medical History - General Information source: Patient - Social History Smoking Status: Current Some Day Smoker Chew tobacco use (# tins/day): No Frequency of alcohol use: None Drug Abuse: None Family History: CAD, COPD, CVA, Hyperlipidemia, Hypertension, Malignancy - Father of lung cancer, Thyroid Disfunction. denies: DM Patient has suicidal ideation: No Patient has homicidal ideation: No - Past Medical History Cardiac Medical History: Reports: Hx Hypercholesterolemia, Hx Hypertension Endocrine Medical History: Reports: Hx Diabetes Mellitus Type 2 Renal/ Medical History: Denies: Hx Peritoneal Dialysis Musculoskeletal Medical History: Reports Hx Arthritis, Reports Hx Musculoskeletal Deformity Psychiatric Medical History: Reports: Hx Depression Past Surgical History: Reports: Hx Cholecystectomy, Hx Tubal Ligation - Immunizations Immunizations up to date: Yes Hx Diphtheria, Pertussis, Tetanus Vaccination: No Hx Pneumococcal Vaccination: 05/18/00 Review of Systems - Review of Systems Constitutional: No symptoms reported EENT: No symptoms reported Cardiovascular: No symptoms reported Respiratory: No symptoms reported Gastrointestinal: See HPI Genitourinary: No symptoms reported Female Genitourinary: No symptoms reported Musculoskeletal: See HPI Skin: No symptoms reported Neurological/Psychological: No symptoms reported Physical Exam - Vital signs Vitals: Temp Pulse Resp BP Pulse Ox 98.3 F 93 20 182/100 H 99 01/03/19 09:42 01/03/19 09:42 01/03/19 09:42 01/03/19 09:42 01/03/19 09:42 - Notes Notes: Vital signs reviewed, please refer to chart. Head is normocephalic, atraumatic. Pupils equal round, reactive to light. Neck is supple without meningismus. Heart is regular rate and rhythm. Lungs are clear to auscultation bilaterally. Abdomen is soft, nontender, normoactive bowel sounds throughout. Patient is actually tender to palpation over the hip flexors on the left and into the inguinal ligament. No palpable hernia noted. Examination of the spine yields no midline tenderness or step-off. She has paraspinal musculature tenderness on the left with associated spasm from L3-L5, mild piriformis tenderness to palpation. Negative straight leg raise bilaterally. Patellar and Achilles reflexes are mildly diminished but symmetrical. Sensation is intact. Extremities without cyanosis, clubbing. Posterior calves are nontender. Peripheral pulses are equal. Skin is warm and dry. Patient is awake, alert, ne urological exam is nonfocal. Course - Re-evaluation Re-evalutation: 01/03/19 10:54 Patient presents emergency department for evaluation of perceived left lower quadrant abdominal pain. In fact the patient does not have any significant abdominal tenderness. She is markedly tender over the inguinal ligament. I do suspect this is all secondary to her radiculopathy. She is Parish on Naprosyn at home. I will then send her home with muscle relaxers. Her urinalysis is unremarkable. The patient will also be restarted on her benazepril and HCTZ. The importance of good blood pressure control was explained to the patient and she voiced understanding. She is to return to the ED with worsening or new concerning symptoms of any sort. 01/03/19 13:46 Patient states that she has burning pain down the anterior aspect of her left l eg. She states she was on Neurontin in the past which helped. I will write her a short course of Neurontin to take as well. - Vital Signs Vital signs: Temp Pulse Resp BP Pulse Ox 98.3 F 93 20 182/100 H 99 01/03/19 09:42 01/03/19 09:42 01/03/19 09:42 01/03/19 09:42 01/03/19 09:42 - Laboratory Result Diagrams: 01/03/19 10:03 01/03/19 10:03 Laboratory results interpreted by me: 01/03/19 01/03/19 10:03 10:03 Glucose 256 H Alkaline Phosphatase 135 H Urine Protein 100 H Urine Glucose (UA) 50 H Urine Ketones TRACE H Urine Bilirubin SMALL H Urine Urobilinogen 4.0 H Urine Ascorbic Acid 20 H Discharge - Discharge Clinical Impression: Left inguinal pain, Noncompliance with medication regimen Hypertension Qualifiers: Hypertension type: essential hypertension Qualified Code(s): I10 - Essential (primary) hypertension Sciatica Qualifiers: Laterality: left Qualified Code(s): M54.32 - Sciatica, left side Condition: Stable Disposition: HOME, SELF-CARE Instructions: High Blood Pressure, Requiring Treatment ([facility]), Sciatica ([facility]) Additional Instructions: Take your medications as prescribed. You need to follow-up with primary care for further evaluation. Moist heat to the painful area. Watch for dizziness and drowsiness with muscle relaxer. Continue your Naprosyn at home. Return to the emergency department with worsening or new concerning symptoms of any sort. Prescriptions: Benazepril HCl [Lotensin] 20 mg PO DAILY #30 tablet Gabapentin [Neurontin 100 mg Capsule] 100 mg PO TID #21 capsule Hydrochlorothiazide [Hydrodiuril 12.5 mg Tablet] 12.5 mg PO QAM #30 capsule Methocarbamol [Robaxin-750] 750 mg PO TID PRN #21 tablet PRN Reason:
[2019-01-03] MEDS ORDERED: AZITHROMYCIN 250 MG TABLET PO ONE (12:39)
[2019-01-03] MEDS ORDERED: CEFTRIAXONE INJ 250 MG VIAL IV ONE (12:39)
== END 2019-01-03 13:51 | disposition home or self-care (01) ==
LOC: ER 09:38
DX: M54.32 Sciatica, left side (principal); R10.32 Left lower quadrant pain; F17.200 Nicotine dependence, unspecified, uncomplicated; I10 Essential (primary) hypertension; Z91.14 Patient's other noncompliance with medication regimen; E78.00 Pure hypercholesterolemia, unspecified; E11.9 Type 2 diabetes mellitus without complications; Z90.49 Acquired absence of other specified parts of digestive tract; Z98.51 Tubal ligation status; Z88.3 Allergy status to other anti-infective agents
CPT/HCPCS: 36415; 83690; 85025; 80053; 81001; J2270; 96374; 99284

== ENCOUNTER 2019-01-09 06:18 | Emergency (ER) | payer SELFPAY ==
[2019-01-09 08:54] LABS: APPEARANCE,URINE CLEAR; BILIRUBIN,URINE NEGATIVE (NEGATIVE); COLOR,URINE YELLOW; GLUCOSE, URINE >=500 mg/dL (NEGATIVE); KETONES,URINE TRACE mg/dL (NEGATIVE); LEUKOCYTE ESTERASE,URINE NEGATIVE (NEGATIVE); NITRITE,URINE NEGATIVE (NEGATIVE); PROTEIN,URINE 30 mg/dL (NEGATIVE); URINE SPECIFIC GRAVITY 1.038
[2019-01-09] MEDS ORDERED: KETOROLAC TROMETHAMINE INJ/PF 30 MG/1 ML SDV IV ONE (09:16)
--- NOTE | 2019-01-09 09:16 | ER Document Report ---
ED Medical Screen (RME) - General Chief Complaint: Groin Pain Stated Complaint: ABDOMINAL PAIN Time Seen by Provider: 01/09/19 09:12 Primary Care Provider: JOSE LARSEN MD [ACTIVE STAFF] - Follow up as needed (First available appointment to discuss your chronic back pain) Mode of Arrival: Ambulatory Information source: Patient Notes: 54 yo devonte presents to ed for sharp pains left abdomen and pelvic around to back and down to ankles for a week. Came Thursday or Thursday for the same but medicine not helping. denies nausea vomiting or diarrhea, has chills. Patient is alert oriented respirations regular and unlabored speaking in full sentences walks with even steady gait. I have greeted and performed a rapid initial assessment of this patient. A comprehensive ED assessment and evaluation of the patient, analysis of test results and completion of medical decision making process will be conducted by an additional ED providers. TRAVEL OUTSIDE OF THE [place] IN LAST 30 DAYS: No - Related Data Allergies/Adverse Reactions: levofloxacin [From Levaquin] Allergy (Verified 08/25/18 13:05) nitrofurantoin [From Macrobid] Allergy (Verified 08/25/18 13:05) tramadol Adverse Reaction (Verified 08/25/18 13:05) Past Medical History - Social History Frequency of alcohol use: None Drug Abuse: None - Past Medical History Cardiac Medical History: Reports: Hx Hypercholesterolemia, Hx Hypertension Endocrine Medical History: Reports: Hx Diabetes Mellitus Type 2 Renal/ Medical History: Denies: Hx Peritoneal Dialysis Musculoskeltal Medical History: Reports Hx Arthritis, Reports Hx Musculoskeletal Deformity Psychiatric Medical History: Reports: Hx Depression Past Surgical History: Reports: Hx Cholecystectomy, Hx Tubal Ligation - Immunizations Immunizations up to date: Yes Hx Diphtheria, Pertussis, Tetanus Vaccination: No Physical Exam - Vital signs Vitals: Temp Pulse Resp BP Pulse Ox 98.2 F 69 16 167/99 H 99 01/09/19 06:26 01/09/19 06:26 01/09/19 06:26 01/09/19 06:26 01/09/19 06:26 Course - Vital Signs Vital signs: Temp Pulse Resp BP Pulse Ox 97.6 F 70 20 188/87 H 97 01/09/19 11:26 01/09/19 11:26 01/09/19 11:26 01/09/19 11:26 01/09/19 11:26 - Laboratory Laboratory results interpreted by me: 01/09/19 08:35 Urine Protein 30 H Urine Glucose (UA) >=500 H Urine Ketones TRACE H Urine Urobilinogen 2.0 H Doctor's Discharge - Discharge Clinical Impression: Chronic radicular pain of lower back Condition: Good Disposition: HOME, SELF-CARE Instructions: Chronic Back Pain ([facility]) Referrals: JOSE LARSEN MD [ACTIVE STAFF] - Follow up as needed (First available appointment to discuss your chronic back pain)
[2019-01-09] MEDS ORDERED: KETOROLAC TROMETHAMINE 60 MG/2 ML SDV IM ONE (09:55)
--- NOTE | 2019-01-09 09:56 | ER Document Report ---
ED General - General Chief Complaint: Groin Pain Stated Complaint: ABDOMINAL PAIN Time Seen by Provider: 01/09/19 09:12 Mode of Arrival: Ambulatory TRAVEL OUTSIDE OF THE [place] IN LAST 30 DAYS: No - HPI Notes: Patient presents the emergency department for chief complaint concerning of lumbar back pain that radiates down her left lower extremity. She states she has been battling this since 2010 after digging a hole in her symptoms started then. They wax and wane throughout the years. She has not had any recent fever nausea vomiting or diarrhea. She denies any saddle anesthesia or dysuria. Denies any recent traumas or falls. - Related Data Allergies/Adverse Reactions: levofloxacin [From Levaquin] Allergy (Verified 08/25/18 13:05) nitrofurantoin [From Macrobid] Allergy (Verified 08/25/18 13:05) tramadol Adverse Reaction (Verified 08/25/18 13:05) Past Medical History - General Information source: Patient - Social History Smoking Status: Current Some Day Smoker Frequency of alcohol use: None Drug Abuse: None Family History: CAD, COPD, CVA, Hyperlipidemia, Hypertension, Malignancy - Father of lung cancer, Thyroid Disfunction. denies: DM Patient has suicidal ideation: No Patient has homicidal ideation: No - Past Medical History Cardiac Medical History: Reports: Hx Hypercholesterolemia, Hx Hypertension Endocrine Medical History: Reports: Hx Diabetes Mellitus Type 2 Renal/ Medical History: Denies: Hx Peritoneal Dialysis Musculoskeletal Medical History: Reports Hx Arthritis, Reports Hx Musculoskeletal Deformity Psychiatric Medical History: Reports: Hx Depression Past Surgical History: Reports: Hx Cholecystectomy, Hx Tubal Ligation - Immunizations Immunizations up to date: Yes Hx Diphtheria, Pertussis, Tetanus Vaccination: No Hx Pneumococcal Vaccination: 05/18/00 Review of Systems - Review of Systems Constitutional: No symptoms reported EENT: No symptoms reported Cardiovascular: No symptoms reported Respiratory: No symptoms reported Gastrointestinal: No symptoms reported Genitourinary: No symptoms reported Female Genitourinary: No symptoms reported Musculoskeletal: See HPI Skin: No symptoms reported Hematologic/Lymphatic: No symptoms reported Neurological/Psychological: No symptoms reported Physical Exam - Vital signs Vitals: Temp Pulse Resp BP Pulse Ox 98.2 F 69 16 167/99 H 99 01/09/19 06:26 01/09/19 06:26 01/09/19 06:26 01/09/19 06:26 01/09/19 06:26 - General General appearance: Appears well, Alert - HEENT Head: Normocephalic, Atraumatic Eyes: Normal - Respiratory Respiratory status: No respiratory distress Chest status: Nontender Breath sounds: Normal - Cardiovascular Rhythm: Regular Heart sounds: Normal auscultation Murmur: No - Abdominal Inspection: Normal Distension: No distension Bowel sounds: Normal - Back Back: Other - Minor tenderness to palpation mid lumbar spine with no step-offs or erythema or induration. No paraspinal tenderness bilaterally. - Extremities Notes: Normal gait, no saddle anesthesia on exam. Stand up from chair without difficulty Course - Re-evaluation Re-evalutation: 01/09/19 09:55 Patient requesting pain medications at this time states that it has her birthday and she just wants to feel well for today. 01/09/19 11:13 No acute findings on x-ray. Patient requesting pain medication I discussed cannot provide narcotics in the emergency department. He states she [facility] has a prescription for Biaxin and gabapentin and they have not been helping. I discussed I would refer her to pain management for further evaluation. - Vital Signs Vital signs: Temp Pulse Resp BP Pulse Ox 98.2 F 69 16 167/99 H 99 01/09/19 06:26 01/09/19 06:26 01/09/19 06:26 01/09/19 06:26 01/09/19 06:26 - Laboratory Laboratory results interpreted by me: 01/09/19 08:35 Urine Protein 30 H Urine Glucose (UA) >=500 H Urine Ketones TRACE H Urine Urobilinogen 2.0 H Discharge - Discharge Clinical Impression: Chronic radicular pain of lower back Condition: Good Disposition: HOME, SELF-CARE Instructions: Chronic Back Pain ([facility]) Referrals: JOSE LARSEN MD [ACTIVE STAFF] - Follow up as needed (First available appointment to discuss your chronic back pain)
--- NOTE | 2019-01-09 10:14 | RADIOLOGY REPORT (SQ) ---
EXAM DESCRIPTION: L SPINE WHOLE COMPLETED DATE/TIME: 01/09/2019 9:58 am REASON FOR STUDY: low back pain COMPARISON: None. NUMBER OF VIEWS: Five views including obliques. TECHNIQUE: AP, lateral, oblique, and sacral radiographic images acquired of the lumbar spine. LIMITATIONS: None. FINDINGS: MINERALIZATION: Normal. SEGMENTATION: Normal. No transitional anatomy. ALIGNMENT: Normal. VERTEBRAE: Maintained height. No fracture or worrisome bone lesion. DISCS: Preserved height. No significant osteophytes or end plate irregularity. POSTERIOR ELEMENTS: Pedicles and facets are intact. No pars defect or posterior arch defects. HARDWARE: None in the spine. PARASPINAL SOFT TISSUES: Normal. PELVIS: Intact as visualized. No fractures or worrisome bone lesions. SI joints intact. OTHER: No other significant finding. IMPRESSION: NORMAL 5 VIEW LUMBAR SPINE. TECHNICAL DOCUMENTATION: JOB ID: [id number] [employer]- All Rights Reserved Reading location - IP/workstation name: [email or web address]
[2019-01-09 11:28] VITALS: BP 188/87
== END 2019-01-09 11:29 | disposition home or self-care (01) ==
LOC: ER 06:18
DX: M54.16 Radiculopathy, lumbar region (principal); R10.30 Lower abdominal pain, unspecified; F17.200 Nicotine dependence, unspecified, uncomplicated; E78.00 Pure hypercholesterolemia, unspecified; I10 Essential (primary) hypertension; E11.9 Type 2 diabetes mellitus without complications; Z88.3 Allergy status to other anti-infective agents; Z90.49 Acquired absence of other specified parts of digestive tract; Z98.51 Tubal ligation status
CPT/HCPCS: 99284; 96374; 81001; 72110; J1885

== ENCOUNTER 2019-01-18 18:19 | Emergency (ER) | payer SELFPAY ==
[2019-01-18] MEDS ORDERED: IBUPROFEN 800 MG TABLET PO ONE (19:15)
--- NOTE | 2019-01-18 19:17 | ER Document Report ---
ED Medical Screen (RME) - General Chief Complaint: Back Pain Stated Complaint: BACK PAIN Time Seen by Provider: 01/18/19 19:07 Mode of Arrival: Medic Information source: Patient Notes: This 54-year-old female presents emergency department with complaints of left- sided flank abdominal pain pelvic pain. Patient reports she has had the symptoms for the past 3 weeks. Reports she vomited this morning. Denies pain with void. Denies vaginal discharge. Patient reports she has been here several times for the same pain. She reports it is not chronic back pain. Patient is very tearful requesting something for the pain. Reports Toradol does not help. TRAVEL OUTSIDE OF THE [place] IN LAST 30 DAYS: No - Related Data Allergies/Adverse Reactions: levofloxacin [From Levaquin] Allergy (Verified 01/18/19 18:21) nitrofurantoin [From Macrobid] Allergy (Verified 01/18/19 18:21) tramadol Adverse Reaction (Verified 01/18/19 18:21) Past Medical History - Social History Chew tobacco use (# tins/day): No Frequency of alcohol use: None Drug Abuse: None - Past Medical History Cardiac Medical History: Reports: Hx Hypercholesterolemia, Hx Hypertension Endocrine Medical History: Reports: Hx Diabetes Mellitus Type 2 Renal/ Medical History: Denies: Hx Peritoneal Dialysis Musculoskeltal Medical History: Reports Hx Arthritis, Reports Hx Musculoskeletal Deformity Psychiatric Medical History: Reports: Hx Depression Past Surgical History: Reports: Hx Cholecystectomy, Hx Tubal Ligation - Immunizations Immunizations up to date: Yes Hx Diphtheria, Pertussis, Tetanus Vaccination: No Physical Exam - Vital signs Vitals: Temp Pulse Resp BP Pulse Ox 97.7 F 75 18 156/84 H 98 01/18/19 18:25 01/18/19 18:25 01/18/19 18:25 01/18/19 18:25 01/18/19 18:25 Course - Vital Signs Vital signs: Temp Pulse Resp BP Pulse Ox 97.7 F 75 18 156/84 H 98 01/18/19 18:25 01/18/19 18:25 01/18/19 18:25 01/18/19 18:25 01/18/19 18:25
[2019-01-18 20:26] LABS: ABSOLUTE BASOPHILS # (AUTO) 0.1 10^3/uL (0.0-0.2); ABSOLUTE EOSINOPHILS # (AUTO) 0.1 10^3/uL (0.0-0.6); ABSOLUTE LYMPHOCYTES (AUTO) 2.6 10^3/uL (0.5-4.7); ABSOLUTE MONOCYTES (AUTO) 0.4 10^3/uL (0.1-1.4); ABSOLUTE NEUT (AUTO) 2.7 10^3/uL (1.7-8.2); BASOPHILS % (AUTO) 0.9 % (0-2); EOSINOPHILS % (AUTO) 1.3 % (0-6); HEMATOCRIT 40.5 % (36.0-47.0); HEMOGLOBIN 13.6 g/dL (12.0-15.5); LYMPHOCYTES % (AUTO) 44.2 % (13-45); MEAN CORPUSCULAR HEMOGLOBIN 29.1 pg (27.0-33.4); MEAN CORPUSCULAR HGB CONC 33.6 g/dL (32.0-36.0); MEAN CORPUSCULAR VOLUME 87 fl (80-97); MONOCYTES % (AUTO) 7.6 % (3-13); PLATELET COUNT 222 10^3/uL (150-450); RED BLOOD COUNT 4.67 10^6/uL (3.72-5.28); TOTAL CELLS COUNTED % (AUTO) 100 %; WHITE BLOOD COUNT 5.8 10^3/uL (4.0-10.5)
[2019-01-18 20:35] LABS: APPEARANCE,URINE CLEAR; BILIRUBIN,URINE NEGATIVE (NEGATIVE); COLOR,URINE YELLOW; GLUCOSE, URINE >=500 mg/dL (NEGATIVE); KETONES,URINE NEGATIVE (NEGATIVE); LEUKOCYTE ESTERASE,URINE NEGATIVE (NEGATIVE); NITRITE,URINE NEGATIVE (NEGATIVE); PROTEIN,URINE NEGATIVE (NEGATIVE); URINE SPECIFIC GRAVITY 1.023; UROBILINOGEN,URINE NEGATIVE mg/dL (<2.0)
[2019-01-18] MEDS ORDERED: OXYCODONE-ACETAMINOPHEN 5-325 MG TABLET PO ONE (20:43)
[2019-01-18] MEDS ORDERED: ACETAMINOPHEN 325 MG TABLET PO ONE (20:44)
[2019-01-18 20:47] LABS: ALBUMIN 4.5 g/dL (3.5-5.0); ALKALINE PHOSPHATASE 113 U/L (38-126); ANION GAP 7 (5-19); ASPARTATE AMINO TRANSFERASE 33 U/L (14-36); BILIRUBIN,DIRECT 0.3 mg/dL (0.0-0.4); BILIRUBIN,TOTAL 0.8 mg/dL (0.2-1.3); BLOOD UREA NITROGEN 14 mg/dL (7-20); CALCIUM 10.3 mg/dL (8.4-10.2); CARBON DIOXIDE 31 mmol/L (22-30); CHLORIDE 98 mmol/L (98-107); GLUCOSE 279 mg/dL (75-110)
--- NOTE | 2019-01-18 21:42 | ER Document Report ---
ED General - General Chief Complaint: Back Pain Stated Complaint: BACK PAIN Time Seen by Provider: 01/18/19 19:07 Mode of Arrival: Medic Notes: 54-year-old female with history of diabetic neuropathy, diabetes, hypertension presents to the emergency department with chief complaint of left-sided flank pain and suprapubic pain that is been going on for weeks. Patient states that she did vomit this morning. Patient denies any fevers, chills, recent illnesses. Patient denies any acute shortness of breath or chest pain. Denies any nausea at this time. Denies any dysuria, urinary frequency, urinary urgency, vaginal discharge, vaginal bleeding. Patient has been seen here several times for the same pain. States Toradol does not work. TRAVEL OUTSIDE OF THE [place] IN LAST 30 DAYS: No - Related Data Allergies/Adverse Reactions: levofloxacin [From Levaquin] Allergy (Verified 01/18/19 18:21) nitrofurantoin [From Macrobid] Allergy (Verified 01/18/19 18:21) tramadol Adverse Reaction (Verified 01/18/19 18:21) Past Medical History - General Information source: Patient - Social History Smoking Status: Current Every Day Smoker Chew tobacco use (# tins/day): No Frequency of alcohol use: None Drug Abuse: None Family History: CAD, COPD, CVA, Hyperlipidemia, Hypertension, Malignancy - Father of lung cancer, Thyroid Disfunction. denies: DM Patient has suicidal ideation: No Patient has homicidal ideation: No - Past Medical History Cardiac Medical History: Reports: Hx Hypercholesterolemia, Hx Hypertension Endocrine Medical History: Reports: Hx Diabetes Mellitus Type 2 Renal/ Medical History: Denies: Hx Peritoneal Dialysis Musculoskeletal Medical History: Reports Hx Arthritis, Reports Hx Musculoskeletal Deformity Psychiatric Medical History: Reports: Hx Depression Past Surgical History: Reports: Hx Cholecystectomy, Hx Tubal Ligation - Immunizations Immunizations up to date: Yes Hx Diphtheria, Pertussis, Tetanus Vaccination: No Hx Pneumococcal Vaccination: 05/18/00 Review of Systems - Review of Systems Constitutional: See HPI EENT: No symptoms reported Cardiovascular: See HPI Respiratory: See HPI Gastrointestinal: See HPI Genitourinary: See HPI Female Genitourinary: See HPI Musculoskeletal: No symptoms reported Skin: No symptoms reported Hematologic/Lymphatic: No symptoms reported Neurological/Psychological: No symptoms reported Physical Exam - Vital signs Vitals: Temp Pulse Resp BP Pulse Ox 97.7 F 75 18 156/84 H 98 01/18/19 18:25 01/18/19 18:25 01/18/19 18:25 01/18/19 18:25 01/18/19 18:25 - Notes Notes: PHYSICAL EXAMINATION: Reviewed vital signs and charting by RN GENERAL: Alert, interacts well. No acute distress. HEAD: Normocephalic, atraumatic. EYES: Pupils equal and round. Extraocular movements intact. ENT: Oral mucosa moist, tongue midline. NECK: Full range of motion. Trachea midline. LUNGS: Clear to auscultation bilaterally, no wheezes, rales, or rhonchi. No respiratory distress. HEART: Regular rate and rhythm. No murmur ABDOMEN: soft, mild suprapubic tenderness. No distention. Bowel sounds present BACK: Tenderness to palpation over the paraspinal muscles on the left side at the level of L5-S1 and at the sacroiliac joint and left side with radiculopathy down her left leg patient is able to bear weight on it. EXTREMITIES: Moves all 4 extremities spontaneously. No edema, No cyanosis. PSYCH: Normal affect, normal mood. SKIN: Warm, dry, normal turgor. No rashes or lesions noted. Course - Re-evaluation Re-evalutation: 01/18/19 21:48 Overall well-appearing and patient is a insulin-dependent diabetic who is noncompliant with poorly controlled sugars. Serum glucose here today 280. Patient states that her pain is in her lower back and it does radiate around to her hip and anterior thigh down her leg. She does have a history of diabetic neuropathy. Because of this and her absence of abnormal vaginal discharge or adnexal type pain I do not feel that we need to do a pelvic exam and obtain a wet mount. Plan is to give patient a Lidoderm patch and patient declined Toradol tonight. Patient's lab work all within normal limits last the serum glucose which is reassuring. I explained to patient that she can have abdominal pain and nausea with blood sugars that are out of control which most likely explains her symptoms. She is not sexually active. At this time her vital signs are within normal limits and she is stable for discharge. - Vital Signs Vital signs: Temp Pulse Resp BP Pulse Ox 97.7 F 75 18 156/84 H 98 01/18/19 18:25 01/18/19 18:25 01/18/19 18:25 01/18/19 18:25 01/18/19 18:25 - Laboratory Result Diagrams: 01/18/19 20:14 01/18/19 20:14 Laboratory results interpreted by me: 01/18/19 01/18/19 20:10 20:14 Sodium 136.2 L Carbon Dioxide 31 H Glucose 279 H Calcium 10.3 H Urine Glucose (UA) >=500 H Discharge - Discharge Clinical Impression: Hyperglycemia Lower back pain Qualifiers: Chronicity: acute Back pain laterality: left Sciatica presence: with sciatica Sciatica laterality: sciatica of left side Qualified Code(s): M54.42 - Lumbago with sciatica, left side Neuropathy, sciatic Qualifiers: Laterality: left Qualified Code(s): G57.02 - Lesion of sciatic nerve, left lower limb Condition: Good Disposition: HOME, SELF-CARE Additional Instructions: You were seen in the emergency department this evening for lower back pain that moves down your left leg and over your front thigh. Also, your abdominal pain and mild nausea that you had earlier is most likely related to your sugars that are out of control, especially since she been having the symptoms for 3 weeks. It is very important that you follow-up as you get her Medicare and Medicaid to get a primary care doctor. You have been given a dose of pain medication here in the emergency department I am sending you home with a short course of pain medication to help bridge you until you can see a primary doctor. Also, we have placed a Lidoderm patch on your back to help with the lower back pain and sciatica. You can continue to take Tylenol 650 mg by mouth and/or ibuprofen 600 mg every 6 hours with food or milk. You can purchase some [id number] Aspercreme and rub it on your lower back. If you develop acute weakness in eit her of your legs, paralysis in your legs, severe intractable abdominal pain, intractable nausea or vomiting, you pass out you have severe chest pain or significant shortness of breath, or you have any other concerning symptoms please immediately return to the emergency department.
[2019-01-18] MEDS ORDERED: HYDROCODONE/ACETAMINOPHEN 5-325 MG (6 TAB/ER DISP) PO PRN (21:47)
[2019-01-18] MEDS ORDERED: LIDOCAINE 5% (700 MG) TRANSDERMAL ADH..PATCH TP ONE (21:48)
[2019-01-18 21:56] LABS: CHLAM PCR NOT DETECTED (NOT DETECT)
[2019-01-18 22:03] VITALS: BP 154/81
== END 2019-01-18 22:10 | disposition home or self-care (01) ==
LOC: ER 18:19
DX: E11.65 Type 2 diabetes mellitus with hyperglycemia (principal); M54.42 Lumbago with sciatica, left side; G57.02 Lesion of sciatic nerve, left lower limb; I10 Essential (primary) hypertension; F17.200 Nicotine dependence, unspecified, uncomplicated; Z88.3 Allergy status to other anti-infective agents
CPT/HCPCS: 36415; 80053; 81001; 85025; 87086; 87088; 87186; 87491; 87591; 99284